=== PATIENT | female | born 1960 | race Caucasian/White ===

== ENCOUNTER 2019-09-22 01:46 | Inpatient (IN) | payer BC, MEDICAID ==
[~2019-09-22] VITALS: Ht 162.6 cm; Wt 91.6 kg
--- NOTE | 2019-09-22 02:00 | NUR ---
PT WITH C/O FLUID IN ABD. STATES SHE HAS BEEN HAVING DIFFICULTY WITH FLUID RETENTION FOR SEVERAL WEEKS. PT HAS A HX OF ALCOHOL USE AND LAST DRINK WAS 09/04/2019. PAIN THROUGHOUT ABD.
[2019-09-22] MEDS ORDERED: ONDANSETRON 2MG/ML, 2ML ONE (02:39)
[2019-09-22] MEDS ORDERED: MORPHINE SULFATE 4 MG/ML, 1ML ONE ×2 (02:40→04:36)
[2019-09-22] MEDS: MORPHINE SULFATE 4 MG/ML, 1ML IVPush PRN ×2 (02:51→04:39)
[2019-09-22] MEDS ORDERED: SODIUM CHLORIDE FLUSH 10ML SYR IVF ONE (03:00)
[2019-09-22] MEDS ORDERED: ONDANSETRON 2MG/ML, 2ML IVPush ONE (03:00)
[2019-09-22] MEDS ORDERED: FAMO-79 PO (03:01)
[2019-09-22] MEDS ORDERED: MAGN400T9 PO (03:01)
[2019-09-22] MEDS ORDERED: NEBI10TA3 PO (03:01)
[2019-09-22] MEDS ORDERED: TRAZ50TA66 PO (03:01)
[2019-09-22] MEDS ORDERED: BACL-19 PO ×2 (03:01→03:10)
[2019-09-22] MEDS ORDERED: SPIRONOLACTONE PO (03:10)
[2019-09-22] MEDS ORDERED: OMEPRAZOLE PO (03:10)
[2019-09-22] MEDS ORDERED: FURO40TA6 PO (03:10)
[2019-09-22] MEDS ORDERED: NICOTINE 14MG/24 HR PATCH.TD24 ONE (04:36)
--- NOTE | 2019-09-22 05:13 | NUR ---
pt placed on hosptial bed.
[2019-09-22] MEDS ORDERED: metoprolol PO (05:29)
--- NOTE | 2019-09-22 05:38 | NUR ---
PT WITH MANY QUESTIONS REGARDING DIAGNOSIS. SHE SAYS NO ONE HAS TAKEN THE TIME TO EXPLAIN IT TO HER. WRITTEN LITERATURE PROVIDED AND SIGNIFICANT AMOUNT OF TIME SPENT ANSWERING QUESTIONS. PT VERBALIZED UNDERSTANDING REGARDING DISEASE PROCESS.
[2019-09-22] MEDS ORDERED: NICOTINE 14MG/24 HR PATCH.TD24 TD ONE (06:00)
--- NOTE | 2019-09-22 06:26 | NUR ---
pt resting on hospital bed with eyes closed. respirations even and unlabored. no acute distress.
--- NOTE | 2019-09-22 06:28 | NUR ---
meal tray ordered.
--- NOTE | 2019-09-22 06:59 | NUR ---
REPORT RECIEVED FROM SHARON MOSS, ASSUEMED CARE OF PT, PT CURRENTLY SLEEPING ON HOSPITAL BED, VISIBLE CHEST RISE AND FALL NOTED.
--- NOTE | 2019-09-22 08:15 | NUR ---
ADMITTING MD IN TO [facility].
[2019-09-22] MEDS ORDERED: ONDANSETRON 2MG/ML, 2ML IVPush PRN (08:30)
[2019-09-22] MEDS: NICOTINE 21 MG/24 HR PATCH.TD24 TD SCH ×2 (08:30→22:57)
[2019-09-22] MEDS ORDERED: CARVEDILOL 6.25 MG TABLET PO SCH (08:30)
[2019-09-22] MEDS ORDERED: HEPARIN 5,000 UNITS/ML, 1ML SQ SCH (08:30)
[2019-09-22] MEDS ORDERED: TRAZODONE 100MG TABLET PO PRN (08:30)
[2019-09-22] MEDS ORDERED: ONDANSETRON ODT 4 MG PO PRN (08:30)
[2019-09-22] MEDS ORDERED: BACLOFEN 10 MG TABLET PO PRN (08:30)
[2019-09-22] MEDS ORDERED: LIDOCAINE 1%, 10ML ONE (08:32)
--- NOTE | 2019-09-22 08:35 | NUR ---
IR RN HERE TO TAKE PT TO HAVE PARACENTESIS PROCEDURE, PT STATES SHE WILL NOT GO WITHOUT ADDITIONAL PAIN MEDICATIONS. SHE STATES "NO ONE IS ON MY SIDE WITH THIS" PT CRYING IN RM. DR CHRISTIANSEN NOTIFIED OF PT REQUEST FOR PAIN MEDS AND REFUSAL TO HAVE PROCEDURE AT THIS TIME, PER ADMITTING MD, PT NOT TO RECIEVE PAIN MEDS. PT REFUSING TO HAVE PROCEDURE AT THIS TIME
[2019-09-22 08:54] LABS: INTERNATIONAL NORMALIZED RATIO 1.15 (0.93-1.1); PROTHROMBIN TIME 12.2 Seconds (9.6-11.5)
[2019-09-22 08:57] LABS: BASOPHILS # (AUTO) 0.06 x10^3/uL (0-0.1); BASOPHILS % (AUTO) 1 % (0-1); EOSINOPHILS # (AUTO) 0.09 x10^3/uL (0-0.4); EOSINOPHILS % (AUTO) 1 % (1-7); LYMPHOCYTES # (AUTO) 2.24 x10^3/uL (1-3.4); LYMPHOCYTES % (AUTO) 28 % (22-44); MD NO; MEAN CORPUSCULAR HEMOGLOBIN 23.8 pg (27.0-34.8); MEAN CORPUSCULAR HGB CONC 31.3 g/dL (32.4-35.8); MEAN CORPUSCULAR VOLUME 76.2 fL (80-100); MEAN PLATELET VOLUME 7.8 fL (7.4-10.4); MONOCYTES # (AUTO) 0.75 x10^3/uL (0.2-0.8); MONOCYTES % (AUTO) 9 % (2-9); NEUTROPHILS # (AUTO) 4.98 x10^3/uL (1.8-6.8); NEUTROPHILS % (AUTO) 61 % (42-75); PLATELET COUNT 313 x10^3/uL (130-400); RED BLOOD COUNT 4.06 x10^6/uL (3.82-5.3); RED CELL DISTRIBUTION WIDTH 21.4 % (9.6-15.2)
[2019-09-22] MEDS: LACTOBACILLUS CHEW TABLET PO SCH ×4 (09:00→21:00)
--- NOTE | 2019-09-22 09:22 | NUR ---
PT HAS BEEN ON PHONE IN RM TALKING/CRYING, ALLOWING PT TIME TO SPEAK WITH FAMILY MEMBER
[2019-09-22 09:24] LABS: ALANINE AMINOTRANSFERASE 14 U/L (12-78); ALBUMIN 2.6 g/dL (3.4-5.0); ANION GAP 5 mmol/L (5-15); CALCIUM 8.5 mg/dL (8.5-10.1); CHLORIDE 102 mmol/L (98-107); CREATININE 0.93 mg/dL (0.55-1.02)
[2019-09-22 09:26] LABS: ALKALINE PHOSPHATASE 77 U/L (45-117); BILIRUBIN,TOTAL 0.7 mg/dL (0.2-1.0); TOTAL PROTEIN 5.9 g/dL (6.4-8.2)
[2019-09-22] MEDS ORDERED: FUROSEMIDE 40 MG TABLET ONE (09:39)
[2019-09-22] MEDS ORDERED: NICOTINE 21 MG/24 HR PATCH.TD24 ONE (09:39)
[2019-09-22] MEDS ORDERED: CARVEDILOL 3.125 MG TABLET ONE (09:39)
--- NOTE | 2019-09-22 09:44 | NUR ---
PT OFFERED MEAL TRAY, PT REFUSED TRAY. VITALS TAKEN
[2019-09-22] MEDS: FUROSEMIDE 40 MG TABLET PO SCH (09:46)
--- NOTE | 2019-09-22 09:53 | NUR ---
PT MEDICATED PER SEP. PT INSTRUCTED THIS RN TO "CLOSE THE DOOR" TO HER RM SO SHE CAN TALK TO SOMEONE. PT EXPRESSED BEING UPSET AT ADMITTING PHYSICIAN, SHE STATES QUOTES HE SAID TO HER, THIS RN ALREADY HEARD DURING HER PHONE CONVERSATION. PT ELABORATES WHEN ASKED A DIRECT QUESTION. PT ASKED BY THIS RN "WHAT CAN I DO FOR YOU AT THIS TIME TO HELP RESOLVE THINGS FOR YOU" PT AGAIN ELABORATES ON TANGENT AND DOES NOT ANSWER THIS RNS QUESTION. THIS RN AGAIN DISCUSSED SITUATION WITH ADMITTING MD, ASKED HIM IF HE COULD GO SEE PT. RESPONSE WAS THIS PT IS MANIPULATIVE AND JUST WANTS PAIN MEDICATION. RN SUP WILL GO IN TO SPEAK WITH PT
--- NOTE | 2019-09-22 11:43 | NUR ---
PT NOW RESTING QUIETLY ON HOSPITAL BED, PT REQUESTING THIS RN ALLOW HER TO SLEEP, WILL CONTINUE TO MONITOR, NO OTHER NEEDS AT THIS TIME
[2019-09-22] MEDS ORDERED: KETOROLAC 30 MG/1 ML ONE (13:47)
--- NOTE | 2019-09-22 14:11 | NUR ---
PT GIVEN LUNCH TRAY PER BREAK RN. PT WAS OFFERED PRN TORADOL FOR PAIN, PT REFUSED. STATES SHE WANTS A NARCOTIC. PER MD PT NOT TO HAVE NARCOTIC MEDICATIONS.
[2019-09-22] MEDS: HEPARIN 5,000 UNITS/ML, 1ML SQ SCH ×2 (15:30→22:46)
[2019-09-22] MEDS ORDERED: BISACODYL 10 MG SUPP PR SCH (17:00)
[2019-09-22] MEDS ORDERED: MORPHINE SULFATE 4 MG/ML, 1ML IVPush PRN (18:00)
[2019-09-22] MEDS: CARVEDILOL 3.125 MG TABLET PO SCH (18:47)
[2019-09-22 19:48] VITALS: BP 110/73
[2019-09-22] MEDS: KETOROLAC 30 MG/1 ML IV PRN (20:18)
[2019-09-23 01:51] VITALS: BP 113/75
[2019-09-23] MEDS: KETOROLAC 30 MG/1 ML IV PRN (04:15)
[2019-09-23 05:13] LABS: ALANINE AMINOTRANSFERASE 13 U/L (12-78); ALBUMIN 2.4 g/dL (3.4-5.0); ANION GAP 5 mmol/L (5-15); CALCIUM 8.3 mg/dL (8.5-10.1); CHLORIDE 101 mmol/L (98-107)
[2019-09-23 05:15] LABS: ALKALINE PHOSPHATASE 74 U/L (45-117); BILIRUBIN,TOTAL 0.6 mg/dL (0.2-1.0); TOTAL PROTEIN 5.6 g/dL (6.4-8.2)
[2019-09-23 05:20] LABS: MEAN CORPUSCULAR HGB CONC 32.4 g/dL (32.4-35.8); MEAN CORPUSCULAR VOLUME 74.1 fL (80-100); MEAN PLATELET VOLUME 7.5 fL (7.4-10.4); PLATELET COUNT 267 x10^3/uL (130-400); RED BLOOD COUNT 3.62 x10^6/uL (3.82-5.3); RED CELL DISTRIBUTION WIDTH 21.2 % (9.6-15.2)
[2019-09-23 05:59] LABS: BASOPHILS # (AUTO) 0.04 x10^3/uL (0-0.1); BASOPHILS % (AUTO) 1 % (0-1); EOSINOPHILS # (AUTO) 0.08 x10^3/uL (0-0.4); EOSINOPHILS % (AUTO) 2 % (1-7); LYMPHOCYTES # (AUTO) 1.73 x10^3/uL (1-3.4); LYMPHOCYTES % (AUTO) 34 % (22-44); MD SCAN; MONOCYTES % (AUTO) 10 % (2-9); NEUTROPHILS # (AUTO) 2.76 x10^3/uL (1.8-6.8); NEUTROPHILS % (AUTO) 54 % (42-75)
[2019-09-23] MEDS: HEPARIN 5,000 UNITS/ML, 1ML SQ SCH ×2 (06:35→12:05)
[2019-09-23] MEDS: CARVEDILOL 3.125 MG TABLET PO SCH (06:35)
[2019-09-23 08:31] VITALS: BP 98/68
[2019-09-23] MEDS: FUROSEMIDE 40 MG TABLET PO SCH (08:40)
[2019-09-23] MEDS: LACTOBACILLUS CHEW TABLET PO SCH (08:40)
[2019-09-23] MEDS ORDERED: BISACODYL 10 MG SUPP PR SCH (09:00)
[2019-09-23] MEDS ORDERED: MORPHINE SULFATE 4 MG/ML, 1ML IVPush PRN (12:00)
[2019-09-23 12:49] VITALS: BP 105/71
[2019-09-23] MEDS ORDERED: LIDOCAINE 1%, 10ML ONE (13:48)
== END 2019-09-23 16:43 | disposition left against medical advice (07) | DRG 433 ==
LOC: ED 03:44 → EDIP 04:18 → 3N 14:58
PROVIDERS: ADMIT Family Medicine; ATTEND Internal Medicine
PROC: 0W9G3ZZ Drainage of Peritoneal Cavity, Percutaneous Approach (ICD-10-PCS; principal; 2019-09-23)
DX: K70.31 Alcoholic cirrhosis of liver with ascites (principal); F10.288 Alcohol dependence with other alcohol-induced disorder; D63.8 Anemia in other chronic diseases classified elsewhere; E66.9 Obesity, unspecified; E78.5 Hyperlipidemia, unspecified; I10 Essential (primary) hypertension; K59.00 Constipation, unspecified; R19.7 Diarrhea, unspecified; F17.210 Nicotine dependence, cigarettes, uncomplicated; Z76.5 Malingerer [conscious simulation]; Z88.2 Allergy status to sulfonamides; Z88.1 Allergy status to other antibiotic agents
CPT/HCPCS: 36415; 96374; 96375; 99285; J3490; 49083; 80053; 80307; 82140; 85025; 85610; G0378; J1885; J2405; J2270

== ENCOUNTER 2019-09-29 11:36 | Outpatient (CLI) | payer BC, MEDICAID ==
[~2019-09-29 11:36] MED LIST: BACL-19 PO; FAMO-79 PO; FURO40TA6 PO; MAGN400T9 PO; NEBI10TA3 PO; OMEPRAZOLE PO; SPIRONOLACTONE PO; TRAZ50TA66 PO; metoprolol PO
[2019-09-29] MEDS ORDERED: LIDOCAINE 1%, 10ML ONE (12:10)
== END 2019-09-29 23:59 | disposition home or self-care (01) ==
LOC: RAD 11:36
PROVIDERS: ATTEND Radiology Diagnostic Radiology
DX: R18.8 Other ascites (principal); F17.210 Nicotine dependence, cigarettes, uncomplicated; Z88.2 Allergy status to sulfonamides; Z88.1 Allergy status to other antibiotic agents; Z88.8 Allergy status to other drugs, medicaments and biological substances; Z88.5 Allergy status to narcotic agent; Z79.899 Other long term (current) drug therapy
CPT/HCPCS: 49083; J3490

== ENCOUNTER → 2020-01-25 | Outpatient (CLI) | payer BC ==
[~2020-01-25] MED LIST changes: +LIDOCAINE 1%, 10ML ONE; +LIDOCAINE-MPF 1%, 5ML ONE
== END | disposition home or self-care (01) ==
LOC: RAD 14:57
PROVIDERS: ATTEND Radiology Diagnostic Radiology
DX: R18.8 Other ascites (principal)
CPT/HCPCS: 49083; J3490

== ENCOUNTER 2020-02-05 08:40 | Outpatient (CLI) | payer BC ==
[~2020-02-05 08:40] MED LIST changes: -LIDOCAINE 1%, 10ML ONE; -LIDOCAINE-MPF 1%, 5ML ONE
[2020-02-05] MEDS ORDERED: LIDOCAINE 1%, 10ML ONE (08:46)
== END 2020-02-05 23:59 | disposition home or self-care (01) ==
LOC: RAD 08:40
PROVIDERS: ATTEND Radiology Diagnostic Radiology
DX: R18.8 Other ascites (principal); R14.0 Abdominal distension (gaseous)
CPT/HCPCS: 49083; J3490

== ENCOUNTER 2020-02-13 11:33 | Outpatient (CLI) | payer BC ==
[2020-02-13] MEDS ORDERED: LIDOCAINE 1%, 10ML ONE (11:50)
== END 2020-02-13 23:59 | disposition home or self-care (01) ==
LOC: RAD 11:33
PROVIDERS: ATTEND Radiology Diagnostic Radiology
DX: R18.8 Other ascites (principal); F17.210 Nicotine dependence, cigarettes, uncomplicated; Z88.1 Allergy status to other antibiotic agents; Z88.2 Allergy status to sulfonamides; Z88.8 Allergy status to other drugs, medicaments and biological substances; Z79.899 Other long term (current) drug therapy; Z72.89 Other problems related to lifestyle
CPT/HCPCS: 49083; J3490

== ENCOUNTER 2020-02-16 14:34 | Outpatient (CLI) | payer BC ==
[2020-02-16] MEDS ORDERED: LIDOCAINE 1%, 10ML ONE (14:53)
== END 2020-02-16 23:59 | disposition home or self-care (01) ==
LOC: RAD 14:34
PROVIDERS: ATTEND Radiology Diagnostic Radiology
DX: R18.8 Other ascites (principal); F17.210 Nicotine dependence, cigarettes, uncomplicated; Z72.89 Other problems related to lifestyle; Z88.1 Allergy status to other antibiotic agents; Z88.2 Allergy status to sulfonamides; Z88.8 Allergy status to other drugs, medicaments and biological substances; Z79.899 Other long term (current) drug therapy
CPT/HCPCS: 49083; J3490

== ENCOUNTER 2020-02-26 15:16 | Outpatient (CLI) | payer BC ==
[2020-02-26] MEDS ORDERED: LIDOCAINE 1%, 10ML ONE (15:24)
== END 2020-02-26 23:59 | disposition home or self-care (01) ==
LOC: RAD 15:16
PROVIDERS: ATTEND Radiology Diagnostic Radiology
DX: R18.8 Other ascites (principal)
CPT/HCPCS: 49083; J3490

== ENCOUNTER 2020-03-06 13:05 | Outpatient (CLI) | payer BC ==
[2020-03-06] MEDS ORDERED: LIDOCAINE 1%, 10ML ONE (13:09)
[2020-03-06] MEDS ORDERED: OMNIPAQUE 350 MG/ML, 100ML BOTTLE ONE (15:22)
== END 2020-03-06 23:59 | disposition home or self-care (01) ==
LOC: RAD 13:05
PROVIDERS: ATTEND Radiology Diagnostic Radiology
DX: K70.31 Alcoholic cirrhosis of liver with ascites (principal); F32.9 Major depressive disorder, single episode, unspecified; F17.210 Nicotine dependence, cigarettes, uncomplicated; Z88.1 Allergy status to other antibiotic agents; Z88.8 Allergy status to other drugs, medicaments and biological substances; Z88.2 Allergy status to sulfonamides; Z79.2 Long term (current) use of antibiotics; Z79.899 Other long term (current) drug therapy; Z98.890 Other specified postprocedural states; Z90.49 Acquired absence of other specified parts of digestive tract
CPT/HCPCS: 49083; 74170; J3490; Q9967

== ENCOUNTER 2020-03-06 15:28 | Outpatient (CLI) | payer SELFPAY ==
[2020-03-06 15:53] LABS: MICROSCOPIC NOT IND
== END 2020-03-06 23:59 | disposition home or self-care (01) ==
LOC: LAB 15:28
PROVIDERS: ATTEND Internal Medicine Gastroenterology
DX: K70.31 Alcoholic cirrhosis of liver with ascites (principal)
CPT/HCPCS: 81003; 84300

== ENCOUNTER → 2020-03-11 | Outpatient (CLI) | payer BC ==
[~2020-03-11] MED LIST changes: +ALBUMIN HUMAN 25%, 25GM/100ML ONE; +LIDOCAINE 1%, 10ML ONE
== END | disposition home or self-care (01) ==
LOC: RAD 11:46
PROVIDERS: ATTEND Radiology Diagnostic Radiology
DX: K70.31 Alcoholic cirrhosis of liver with ascites (principal)
CPT/HCPCS: 49083; J3490; P9047

== ENCOUNTER → 2020-03-15 | Outpatient (CLI) | payer BC ==
[~2020-03-15] MED LIST changes: -ALBUMIN HUMAN 25%, 25GM/100ML ONE
== END | disposition home or self-care (01) ==
LOC: RAD 09:17
PROVIDERS: ATTEND Radiology Diagnostic Radiology
DX: R18.8 Other ascites (principal)
CPT/HCPCS: 49083; J3490

== ENCOUNTER 2020-03-22 09:07 | Outpatient (CLI) | payer BC ==
[~2020-03-22 09:07] MED LIST changes: -LIDOCAINE 1%, 10ML ONE
[2020-03-22] MEDS ORDERED: LIDOCAINE 1%, 10ML ONE (09:12)
[2020-03-22] MEDS ORDERED: ALBUMIN HUMAN 25%, 25GM/100ML ONE (10:06)
== END 2020-03-22 23:59 | disposition home or self-care (01) ==
LOC: RAD 09:07
PROVIDERS: ATTEND Radiology Diagnostic Radiology
DX: K70.31 Alcoholic cirrhosis of liver with ascites (principal); F32.9 Major depressive disorder, single episode, unspecified; F17.210 Nicotine dependence, cigarettes, uncomplicated; Z88.1 Allergy status to other antibiotic agents; Z88.2 Allergy status to sulfonamides; Z88.8 Allergy status to other drugs, medicaments and biological substances; Z90.49 Acquired absence of other specified parts of digestive tract; Z79.82 Long term (current) use of aspirin; Z72.89 Other problems related to lifestyle; Z79.899 Other long term (current) drug therapy; Z98.890 Other specified postprocedural states
CPT/HCPCS: 49083; J3490; P9047

== ENCOUNTER → 2020-03-26 | Outpatient (CLI) | payer BC ==
[~2020-03-26] MED LIST changes: +ALBUMIN HUMAN 25%, 25GM/100ML ONE
== END | disposition home or self-care (01) ==
LOC: RAD 10:39
PROVIDERS: ATTEND Radiology Diagnostic Radiology
DX: K70.31 Alcoholic cirrhosis of liver with ascites (principal); F32.9 Major depressive disorder, single episode, unspecified; E55.9 Vitamin D deficiency, unspecified; F17.210 Nicotine dependence, cigarettes, uncomplicated; Z79.891 Long term (current) use of opiate analgesic; Z79.82 Long term (current) use of aspirin; Z79.899 Other long term (current) drug therapy; Z90.49 Acquired absence of other specified parts of digestive tract; Z98.84 Bariatric surgery status; Z98.890 Other specified postprocedural states
CPT/HCPCS: 49083; P9047

== ENCOUNTER 2020-03-29 15:06 | Inpatient (IN) | payer BC ==
[~2020-03-29] VITALS: Ht 162.6 cm; Wt 74.3 kg
[~2020-03-29 15:06] MED LIST changes: -LACT20SO13 PO; -LIDOCAINE 1%, 10ML ONE
--- NOTE | 2020-03-29 15:31 | NUR ---
ASSUMED CARE OF PATIENT. PT C/O RUQ "SORENESS." PT HAS A HISTORY OF LIVER DISEASE. PT ALSO REPORTS SHE HAS NOT HAD A LOT OF ENERGY. VS STABLE. PT REFUSED TO PUT ON GOWN. CALL LIGHT IN PLACE. WILL CONTINUE TO MONITOR.
--- NOTE | 2020-03-29 16:15 | NUR ---
GABRIELA STOCK IN ROOM TALKING WITH PATIENT.
--- NOTE | 2020-03-29 16:25 | NUR ---
PT GIVEN PO FLUIDS PER GABRIELA STOCK
--- NOTE | 2020-03-29 16:29 | NUR ---
PT REFUSED CATHETER. GABRIELA STOCK AWARE.
[2020-03-29] MEDS ORDERED: SODIUM CHLORIDE FLUSH 10ML SYR IVF ONE (16:30)
[2020-03-29 17:05] LABS: BASOPHILS # (AUTO) 0.06 x10^3/uL (0-0.1); BASOPHILS % (AUTO) 1 % (0-1); EOSINOPHILS # (AUTO) 0.16 x10^3/uL (0-0.4); EOSINOPHILS % (AUTO) 1 % (1-7); LYMPHOCYTES # (AUTO) 1.72 x10^3/uL (1-3.4); LYMPHOCYTES % (AUTO) 14 % (22-44); MD NO; MEAN CORPUSCULAR HEMOGLOBIN 27.4 pg (27.0-34.8); MEAN CORPUSCULAR HGB CONC 33.1 g/dL (32.4-35.8); MEAN CORPUSCULAR VOLUME 82.9 fL (80-100); MEAN PLATELET VOLUME 6.9 fL (7.4-10.4); MONOCYTES # (AUTO) 1.16 x10^3/uL (0.2-0.8); MONOCYTES % (AUTO) 9 % (2-9); NEUTROPHILS # (AUTO) 9.51 x10^3/uL (1.8-6.8); NEUTROPHILS % (AUTO) 75 % (42-75); PLATELET COUNT 350 x10^3/uL (130-400); RED BLOOD COUNT 5.61 x10^6/uL (3.82-5.3); RED CELL DISTRIBUTION WIDTH 16.3 % (9.6-15.2)
--- NOTE | 2020-03-29 17:08 | NUR ---
PT RESTING IN ROOM. VS STABLE. NO ACUTE DISTRESS NOTED. CALL LIGHT IN PLACE. WILL CONTINUE TO MONITOR.
[2020-03-29 17:14] LABS: ALANINE AMINOTRANSFERASE 19 U/L (12-78); ALBUMIN 2.8 g/dL (3.4-5.0); ANION GAP 5 mmol/L (5-15); CALCIUM 8.5 mg/dL (8.5-10.1); CHLORIDE 102 mmol/L (98-107); CREATININE 2.38 mg/dL (0.55-1.02)
[2020-03-29 17:16] LABS: ALKALINE PHOSPHATASE 108 U/L (45-117); BILIRUBIN,TOTAL 0.5 mg/dL (0.2-1.0); TOTAL PROTEIN 5.7 g/dL (6.4-8.2)
--- NOTE | 2020-03-29 17:18 | NUR ---
PT REPORTS SHE DOES NOT WANT A CATHETER SHE WANTS TO URINATE IN A CUP. GABRIELA STOCK AWARE. PT GIVEN A CUP. PT GIVEN WATER PER PROVIDER. PT IS NOT ABLE TO URINATE YET. PT IS RESTING IN ROOM. VS STABLE. NO ACUTE DISTRESS NOTED. WILL CONTINUE TO MONITOR.
[2020-03-29] MEDS ORDERED: DEXTROSE 50%, 50ML SYRINGE IVPush ONE (17:30)
[2020-03-29] MEDS ORDERED: INSULIN REGULAR 100 UNITS/ML, 3ML VIAL IVPush ONE (17:30)
[2020-03-29] MEDS ORDERED: ALBUTEROL 0.5%, 20ML NPPB ONE (17:30)
--- NOTE | 2020-03-29 17:33 | NUR ---
DR BOONE HAS UPDATED PATIENT. PATIENT REFUSES EKG UNTIL SHE CAN GO THE BATHROOM. PT IN BATHROOM AT THIS TIME.
[2020-03-29] MEDS ORDERED: ALBUTEROL 0.5%, 20ML ONE (17:51)
[2020-03-29] MEDS ORDERED: ALBUTEROL SULFATE 2.5 MG/3 ML ONE (17:55)
[2020-03-29] MEDS ORDERED: CALCIUM GLUCONATE 4.6 MEQ/10 ML IVPush ONE (18:00)
[2020-03-29] MEDS ORDERED: DEXTROSE 50%, 50ML SYRINGE ONE (18:03)
[2020-03-29] MEDS ORDERED: CALCIUM GLUCONATE 4.6 MEQ/10 ML ONE (18:03)
[2020-03-29] MEDS ORDERED: INSULIN SINGLE DOSE, ER ONE (18:05)
--- NOTE | 2020-03-29 18:23 | NUR ---
TALKED WITH PHARMACY. PHARMACY TO SEND A BAG OF CALCIUM GLUCONATE
[2020-03-29] MEDS ORDERED: CALCIUM GLUCONATE 4.6 MEQ in SODIUM CHLORIDE 0.9% 100 ML IV ONE (18:30)
[2020-03-29] MEDS ORDERED: ONDANSETRON ODT 4 MG PO PRN (18:30)
--- NOTE | 2020-03-29 18:31 | NUR ---
COMPARISON SHOPPER ON. NSR NOTED. CALL LIGHT IN PLACE. WILL CONTINUE TO MONITOR.
[2020-03-29 18:36] LABS: INTERNATIONAL NORMALIZED RATIO 1.09 (0.93-1.1); PROTHROMBIN TIME 11.2 Seconds (9.6-11.5)
--- NOTE | 2020-03-29 18:41 | NUR ---
BOTH BLOOD CULTURES DRAWN
--- NOTE | 2020-03-29 18:49 | NUR ---
PT REPORTS SHE NO LONGER TAKES BACLOFIN OR LASIX. PROVIDER BRANCH. VALENTINE LAKE NP (PT'S PROVIDER) WANTS BACLOFIN AND LASIX STOPPED. READ BACK AND VERIFED WITH PROVIDER.
[2020-03-29] MEDS ORDERED: SODIUM BICARB 8.4%,50ML SYR. 75 MEQ in SODIUM CHLORIDE 0.45% 1,000 ML IV SCH (19:00)
--- NOTE | 2020-03-29 20:03 | NUR ---
PT REFUSES TO PUT ON GOWN. PT CALLING SON TO LET HIM KNOW SHE WILL BE AN ADMIT.
--- NOTE | 2020-03-29 20:16 | NUR ---
PT GIVEN DINNER. VS STABLE. NO ACUTE DISTRESS NOTED. WILL CONTINUE TO MONITOR.
[2020-03-29] MEDS: ALBUMIN HUMAN 25% 100 ML IV SCH (20:29)
[2020-03-29 20:40] LABS: C-REACTIVE PROTEIN, QUANT 0.48 mg/dL (0.02-0.49)
[2020-03-29] MEDS ORDERED: BACLOFEN 10 MG TABLET PO SCH (21:00)
[2020-03-29 21:31] LABS: MICROSCOPIC INDICATED
[2020-03-29] MEDS: SODIUM CHLORIDE FLUSH 10ML SYR IVF SCH (21:41)
[2020-03-29] MEDS: TRAZODONE 50MG TABLET PO SCH (21:42)
[2020-03-29] MEDS: LACTULOSE 20 GM/30 ML UDC PO SCH (21:42)
[2020-03-29] MEDS: hydrOXyzine 10 MG/5 ML ORAL SOL PO PRN (21:42)
[2020-03-29 21:50] VITALS: BP 110/75
[2020-03-29 21:52] LABS: CHLORIDE,URINE RANDOM < 10 mmol/L; POTASSIUM,URINE RANDOM 23 mmol/L; SODIUM,URINE RANDOM 9 mmol/L
[2020-03-29] MEDS: OXYcodone IR 5MG TABLET PO PRN (22:49)
[2020-03-30 00:26] VITALS: BP 107/70
[2020-03-30] MEDS: ALBUMIN HUMAN 25% 100 ML IV SCH ×3 (04:49→21:13)
[2020-03-30] MEDS: hydrOXyzine 10 MG/5 ML ORAL SOL PO PRN (04:56)
[2020-03-30] MEDS: OXYcodone IR 5MG TABLET PO PRN ×4 (04:57→21:14)
[2020-03-30 06:08] LABS: BASOPHILS # (AUTO) 0.06 x10^3/uL (0-0.1); BASOPHILS % (AUTO) 1 % (0-1); EOSINOPHILS # (AUTO) 0.24 x10^3/uL (0-0.4); EOSINOPHILS % (AUTO) 4 % (1-7); LYMPHOCYTES # (AUTO) 1.26 x10^3/uL (1-3.4); LYMPHOCYTES % (AUTO) 19 % (22-44); MD NO; MEAN CORPUSCULAR HEMOGLOBIN 27.6 pg (27.0-34.8); MEAN CORPUSCULAR HGB CONC 33.1 g/dL (32.4-35.8); MEAN CORPUSCULAR VOLUME 83.3 fL (80-100); MEAN PLATELET VOLUME 6.7 fL (7.4-10.4); MONOCYTES % (AUTO) 8 % (2-9); NEUTROPHILS # (AUTO) 4.59 x10^3/uL (1.8-6.8); NEUTROPHILS % (AUTO) 69 % (42-75); PLATELET COUNT 252 x10^3/uL (130-400); RED BLOOD COUNT 4.57 x10^6/uL (3.82-5.3); RED CELL DISTRIBUTION WIDTH 15.8 % (9.6-15.2)
[2020-03-30 06:13] LABS: ALBUMIN 3.5 g/dL (3.4-5.0); ANION GAP 6 mmol/L (5-15); CALCIUM 8.5 mg/dL (8.5-10.1); CHLORIDE 100 mmol/L (98-107)
[2020-03-30 06:20] LABS: ALANINE AMINOTRANSFERASE 18 U/L (12-78); ALKALINE PHOSPHATASE 82 U/L (45-117); BILIRUBIN,TOTAL 0.8 mg/dL (0.2-1.0); CREATININE 2.25 mg/dL (0.55-1.02); TOTAL PROTEIN 5.8 g/dL (6.4-8.2)
[2020-03-30 07:09] VITALS: BP 114/74
[2020-03-30] MEDS: SODIUM CHLORIDE FLUSH 10ML SYR IVF SCH ×2 (09:00→21:14)
[2020-03-30] MEDS ORDERED: FUROSEMIDE 40 MG TABLET PO SCH (09:00)
[2020-03-30] MEDS: MAGNESIUM OXIDE 400 MG TABLET PO SCH (09:07)
[2020-03-30] MEDS: LACTULOSE 20 GM/30 ML UDC PO SCH ×3 (09:07→21:13)
[2020-03-30] MEDS ORDERED: PHARMACY MAY ADJ FOR RENAL FX MC PRN (11:00)
[2020-03-30] MEDS ORDERED: DIPHENHYDRAMINE 12.5MG/5ML, 10ML UDC PO PRN (11:00)
[2020-03-30] MEDS ORDERED: SODIUM BICARB 8.4%,50ML SYR. 75 MEQ in SODIUM CHLORIDE 0.45% 1,000 ML IV ONE (11:15)
[2020-03-30 13:07] VITALS: BP 108/71
[2020-03-30 15:29] LABS: MICROSCOPIC NOT IND
[2020-03-30] MEDS ORDERED: NICOTINE 21 MG/24 HR PATCH.TD24 TD ONE (20:30)
[2020-03-30] MEDS: TRAZODONE 50MG TABLET PO SCH (21:14)
[2020-03-30 21:15] VITALS: BP 105/69
[2020-03-31] MEDS: OXYcodone IR 5MG TABLET PO PRN ×2 (01:22→05:29)
[2020-03-31 01:51] VITALS: BP 117/70
[2020-03-31] MEDS: ALBUMIN HUMAN 25% 100 ML IV SCH ×2 (04:54→12:30)
[2020-03-31 06:07] LABS: BASOPHILS # (AUTO) 0.04 x10^3/uL (0-0.1); BASOPHILS % (AUTO) 1 % (0-1); EOSINOPHILS # (AUTO) 0.21 x10^3/uL (0-0.4); EOSINOPHILS % (AUTO) 5 % (1-7); LYMPHOCYTES # (AUTO) 0.79 x10^3/uL (1-3.4); LYMPHOCYTES % (AUTO) 19 % (22-44); MD NO; MEAN CORPUSCULAR HEMOGLOBIN 27.8 pg (27.0-34.8); MEAN CORPUSCULAR HGB CONC 33.1 g/dL (32.4-35.8); MEAN CORPUSCULAR VOLUME 83.8 fL (80-100); MEAN PLATELET VOLUME 6.3 fL (7.4-10.4); MONOCYTES # (AUTO) 0.33 x10^3/uL (0.2-0.8); MONOCYTES % (AUTO) 8 % (2-9); NEUTROPHILS # (AUTO) 2.82 x10^3/uL (1.8-6.8); NEUTROPHILS % (AUTO) 67 % (42-75); PLATELET COUNT 198 x10^3/uL (130-400); RED BLOOD COUNT 4.23 x10^6/uL (3.82-5.3); RED CELL DISTRIBUTION WIDTH 15.8 % (9.6-15.2)
[2020-03-31 06:09] LABS: ALANINE AMINOTRANSFERASE 18 U/L (12-78); ALBUMIN 3.7 g/dL (3.4-5.0); ANION GAP 8 mmol/L (5-15); CALCIUM 8.4 mg/dL (8.5-10.1); CHLORIDE 98 mmol/L (98-107); CREATININE 1.49 mg/dL (0.55-1.02)
[2020-03-31 06:11] LABS: ALKALINE PHOSPHATASE 77 U/L (45-117); BILIRUBIN,TOTAL 0.9 mg/dL (0.2-1.0)
[2020-03-31 07:16] VITALS: BP 96/60
[2020-03-31] MEDS: MAGNESIUM OXIDE 400 MG TABLET PO SCH (08:23)
[2020-03-31] MEDS: LACTULOSE 20 GM/30 ML UDC PO SCH (08:24)
[2020-03-31] MEDS: SODIUM CHLORIDE FLUSH 10ML SYR IVF SCH (08:24)
[2020-03-31] MEDS ORDERED: LACT20SO13 PO (12:28)
[2020-03-31 12:38] VITALS: BP 110/74
== END 2020-03-31 17:00 | disposition home or self-care (01) | DRG 682 ==
LOC: ED 18:09 → EDIP 18:37 → 4WST 21:06
PROVIDERS: ADMIT Family Medicine; ATTEND Family Medicine
DX: N17.0 Acute kidney failure with tubular necrosis (principal); K76.7 Hepatorenal syndrome; E87.1 Hypo-osmolality and hyponatremia; R65.10 Systemic inflammatory response syndrome (SIRS) of non-infectious origin without acute organ dysfunction; K70.31 Alcoholic cirrhosis of liver with ascites; D72.829 Elevated white blood cell count, unspecified; E78.5 Hyperlipidemia, unspecified; E87.5 Hyperkalemia; F10.20 Alcohol dependence, uncomplicated; F17.210 Nicotine dependence, cigarettes, uncomplicated; I10 Essential (primary) hypertension; L29.9 Pruritus, unspecified; E66.9 Obesity, unspecified; I95.9 Hypotension, unspecified; Z91.19 Patient's noncompliance with other medical treatment and regimen; Z90.49 Acquired absence of other specified parts of digestive tract; Z79.899 Other long term (current) drug therapy; Z88.2 Allergy status to sulfonamides; Z88.1 Allergy status to other antibiotic agents; Z88.8 Allergy status to other drugs, medicaments and biological substances; Z68.28 Body mass index [BMI] 28.0-28.9, adult; Z88.5 Allergy status to narcotic agent
CPT/HCPCS: 36415; 76770; 80053; 80307; 81001; 81003; 82140; 82436; 82570; 82962; 83605; 83690; 83930; 83935; 84132; 84133; 84300; 85025; 85610; 85730; 86140; 87040; 87086; 93005; 96374; 96375; G0378; J0610; J1815; P9047; Q0177

== ENCOUNTER → 2020-03-29 | Outpatient (CLI) | payer BC ==
[~2020-03-29] MED LIST changes: -ALBUMIN HUMAN 25%, 25GM/100ML ONE; +LACT20SO13 PO; +LIDOCAINE 1%, 10ML ONE
== END | disposition home or self-care (01) ==
LOC: RAD 14:42
PROVIDERS: ATTEND Radiology Diagnostic Radiology
DX: K70.31 Alcoholic cirrhosis of liver with ascites (principal); R41.82 Altered mental status, unspecified
CPT/HCPCS: 49083; J3490

== ENCOUNTER → 2020-04-04 | Outpatient (CLI) | payer BC ==
[~2020-04-04] MED LIST changes: +LACT20SO13 PO; +LIDOCAINE 1%, 10ML ONE; +MIDO5TAB9 PO; +OXYC5TAB3 PO; +RIFA550T4 PO
== END | disposition home or self-care (01) ==
LOC: RAD 12:38
PROVIDERS: ATTEND Radiology Diagnostic Radiology
DX: K70.31 Alcoholic cirrhosis of liver with ascites (principal)
CPT/HCPCS: 49083; J3490

== ENCOUNTER 2020-04-05 12:56 | Inpatient (IN) | payer BC ==
[~2020-04-05] VITALS: Ht 162.6 cm; Wt 72.2 kg
[~2020-04-05 12:56] MED LIST changes: -LIDOCAINE 1%, 10ML ONE; -MIDO5TAB9 PO; -OXYC5TAB3 PO; -RIFA550T4 PO
[2020-04-05 13:46] LABS: ALANINE AMINOTRANSFERASE 18 U/L (12-78); ALBUMIN 3.1 g/dL (3.4-5.0); ANION GAP 7 mmol/L (5-15); CHLORIDE 104 mmol/L (98-107); CREATININE 1.98 mg/dL (0.55-1.02)
[2020-04-05 13:48] LABS: ALKALINE PHOSPHATASE 126 U/L (45-117); BILIRUBIN,TOTAL 0.7 mg/dL (0.2-1.0); TOTAL PROTEIN 6.2 g/dL (6.4-8.2)
[2020-04-05 13:50] LABS: BASOPHILS # (AUTO) 0.01 x10^3/uL (0-0.1); BASOPHILS % (AUTO) 0 % (0-1); EOSINOPHILS % (AUTO) 2 % (1-7); LYMPHOCYTES # (AUTO) 1.26 x10^3/uL (1-3.4); LYMPHOCYTES % (AUTO) 12 % (22-44); MD NO; MEAN CORPUSCULAR HEMOGLOBIN 27.6 pg (27.0-34.8); MEAN CORPUSCULAR HGB CONC 33.7 g/dL (32.4-35.8); MEAN CORPUSCULAR VOLUME 81.9 fL (80-100); MEAN PLATELET VOLUME 7.1 fL (7.4-10.4); MONOCYTES # (AUTO) 0.78 x10^3/uL (0.2-0.8); MONOCYTES % (AUTO) 8 % (2-9); NEUTROPHILS # (AUTO) 8.01 x10^3/uL (1.8-6.8); NEUTROPHILS % (AUTO) 78 % (42-75); PLATELET COUNT 341 x10^3/uL (130-400); RED BLOOD COUNT 5.34 x10^6/uL (3.82-5.3); RED CELL DISTRIBUTION WIDTH 15.7 % (9.6-15.2)
--- NOTE | 2020-04-05 15:20 | NUR ---
PORTABLE MACHINE SANDER: PT TO ROOM FROM LOBBY
--- NOTE | 2020-04-05 15:28 | NUR ---
PT HAS CIRRHOSIS, 2L PARACENTESIS YESTERDAY BUT MD WAS WORRIED TO REMOVE MORE BECAUSE HE DIDNT WANT TO HURT KIDNEYS. PT IS UNCOMFORTABLE, STATES SHE IS UNABLE TO PROVIDE URINE SAMPLE AT THIS TIME. PT DENIES CP, SOB. JUST OVERALL PAIN FROM PRESSURE IN ABDOMEN.
[2020-04-05] MEDS ORDERED: ONDANSETRON 2MG/ML, 2ML IVPush ONE (16:00)
[2020-04-05] MEDS ORDERED: HYDROmorphone 2 MG/ML, 1ML IVPush ONE (16:00)
[2020-04-05] MEDS ORDERED: HYDROmorphone 1 MG/ML, 1ML INJ ONE (16:12)
[2020-04-05] MEDS ORDERED: ONDANSETRON 2MG/ML, 2ML ONE (16:13)
--- NOTE | 2020-04-05 16:39 | NUR ---
MEDICATED FOR PAIN, POC FOR IR
[2020-04-05] MEDS ORDERED: ALBUMIN HUMAN 25% 100 ML IV ONE ×2 (17:30)
[2020-04-05] MEDS: CEFTRIAXONE PMX 1GM/50ML 50 ML IV SCH ×2 (17:30→17:43)
[2020-04-05] MEDS ORDERED: MELATONIN 5 MG TABLET PO PRN (17:30)
[2020-04-05] MEDS ORDERED: ONDANSETRON 2MG/ML, 2ML IVPush PRN (17:30)
[2020-04-05] MEDS ORDERED: CEFTRIAXONE PMX 1GM/50ML 50 ML ONE (17:38)
--- NOTE | 2020-04-05 17:45 | NUR ---
PT BACK FROM IR, [facility] AT BEDSIDE.
[2020-04-05] MEDS ORDERED: DIPHENHYDRAMINE 25 MG CAPSULE PO PRN (18:00)
[2020-04-05] MEDS ORDERED: SODIUM ZIRCONIUM CYCLOSILICATE 10 GM PO ONE (18:30)
[2020-04-05] MEDS ORDERED: LEVOFLOXACIN/PMX 250MG/50ML 50 ML IV SCH (18:30)
[2020-04-05 18:34] LABS: INTERNATIONAL NORMALIZED RATIO 1.06 (0.93-1.1); PROTHROMBIN TIME 10.9 Seconds (9.6-11.5)
--- NOTE | 2020-04-05 18:34 | NUR ---
WAITING FOR MEDICATIONS FROM PHARMACY
[2020-04-05] MEDS ORDERED: NICOTINE 21 MG/24 HR PATCH.TD24 ONE (19:56)
[2020-04-05] MEDS ORDERED: DIPHENHYDRAMINE 25 MG CAPSULE ONE (19:56)
[2020-04-05] MEDS: NICOTINE 21 MG/24 HR PATCH.TD24 TD SCH (19:59)
[2020-04-05 20:42] VITALS: BP 134/77
[2020-04-05] MEDS: MIDODRINE 5 MG TABLET PO SCH (21:04)
[2020-04-05] MEDS: LACTULOSE 20 GM/30 ML UDC PO SCH (21:04)
[2020-04-05] MEDS: SODIUM BICARBONATE 650 MG TABLET PO SCH (21:05)
[2020-04-05] MEDS: SODIUM CHLORIDE FLUSH 10ML SYR IVF SCH (21:05)
[2020-04-05] MEDS: OXYcodone IR 5MG TABLET PO PRN (21:05)
[2020-04-06 01:45] VITALS: BP 117/78
[2020-04-06] MEDS: OXYcodone IR 5MG TABLET PO PRN ×4 (03:08→22:43)
[2020-04-06 05:23] LABS: ANION GAP 7 mmol/L (5-15); CALCIUM 8.5 mg/dL (8.5-10.1); CHLORIDE 100 mmol/L (98-107); CREATININE 1.65 mg/dL (0.55-1.02)
[2020-04-06 05:50] LABS: BASOPHILS # (AUTO) 0.04 x10^3/uL (0-0.1); BASOPHILS % (AUTO) 1 % (0-1); EOSINOPHILS # (AUTO) 0.23 x10^3/uL (0-0.4); EOSINOPHILS % (AUTO) 3 % (1-7); LYMPHOCYTES % (AUTO) 15 % (22-44); MD NO; MEAN CORPUSCULAR HEMOGLOBIN 26.7 pg (27.0-34.8); MEAN CORPUSCULAR HGB CONC 31.4 g/dL (32.4-35.8); MEAN CORPUSCULAR VOLUME 84.9 fL (80-100); MEAN PLATELET VOLUME 6.7 fL (7.4-10.4); MONOCYTES % (AUTO) 7 % (2-9); NEUTROPHILS # (AUTO) 5.38 x10^3/uL (1.8-6.8); NEUTROPHILS % (AUTO) 74 % (42-75); PLATELET COUNT 230 x10^3/uL (130-400); RED BLOOD COUNT 4.61 x10^6/uL (3.82-5.3); RED CELL DISTRIBUTION WIDTH 16.2 % (9.6-15.2)
[2020-04-06 07:12] VITALS: BP 98/61
[2020-04-06] MEDS ORDERED: PANTOPRAZOLE 40 MG IV IVPush SCH (07:30)
[2020-04-06] MEDS: SODIUM BICARBONATE 650 MG TABLET PO SCH (09:29)
[2020-04-06] MEDS: LACTULOSE 20 GM/30 ML UDC PO SCH ×3 (09:30→21:25)
[2020-04-06] MEDS: SODIUM CHLORIDE FLUSH 10ML SYR IVF SCH ×2 (09:30→21:25)
[2020-04-06] MEDS: MIDODRINE 5 MG TABLET PO SCH ×3 (09:30→21:25)
[2020-04-06] MEDS: RIFAXIMIN 550 MG TABLET PO SCH (13:32)
[2020-04-06] MEDS: DIPHENHYDRAMINE 25 MG CAPSULE PO PRN ×2 (13:32→21:36)
[2020-04-06 13:34] VITALS: BP 113/76
[2020-04-06 19:35] VITALS: BP 113/77
[2020-04-06] MEDS ORDERED: TRAZODONE 100MG TABLET PO SCH (21:00)
[2020-04-06] MEDS: NICOTINE 21 MG/24 HR PATCH.TD24 TD SCH (22:43)
[2020-04-06 23:12] LABS: POTASSIUM,URINE RANDOM 37 mmol/L; SODIUM,URINE RANDOM 12 mmol/L
[2020-04-06 23:16] LABS: CHLORIDE,URINE RANDOM < 10 mmol/L
[2020-04-06 23:27] LABS: MICROSCOPIC INDICATED
[2020-04-07 00:38] VITALS: BP 105/65
[2020-04-07 04:12] LABS: ANION GAP 5 mmol/L (5-15); CALCIUM 8.3 mg/dL (8.5-10.1); CHLORIDE 102 mmol/L (98-107)
[2020-04-07 07:03] VITALS: BP 95/61
[2020-04-07] MEDS ORDERED: SODIUM ZIRCONIUM CYCLOSILICATE 5 GM PO ONE (07:30)
[2020-04-07] MEDS: RIFAXIMIN 550 MG TABLET PO SCH (08:29)
[2020-04-07] MEDS: LACTULOSE 20 GM/30 ML UDC PO SCH (08:29)
[2020-04-07] MEDS: MIDODRINE 5 MG TABLET PO SCH (08:29)
[2020-04-07] MEDS: OXYcodone IR 5MG TABLET PO PRN (08:30)
[2020-04-07] MEDS: SODIUM CHLORIDE FLUSH 10ML SYR IVF SCH (09:28)
[2020-04-07] MEDS ORDERED: OXYC5TAB3 PO (11:17)
[2020-04-07] MEDS ORDERED: RIFA550T4 PO (11:17)
[2020-04-07] MEDS ORDERED: MIDO5TAB9 PO (11:17)
[2020-04-07 13:06] VITALS: BP 118/61
== END 2020-04-07 15:15 | disposition home or self-care (01) | DRG 432 ==
LOC: ED 16:06 → EDIP 17:10 → 3N 20:32 → DCLOUNGE 04-07 15:00
PROVIDERS: ADMIT Hospitalist; ATTEND Hospitalist
PROC: 0W9G3ZX Drainage of Peritoneal Cavity, Percutaneous Approach, Diagnostic (ICD-10-PCS; principal; 2020-04-05)
DX: K70.31 Alcoholic cirrhosis of liver with ascites (principal); K76.7 Hepatorenal syndrome; E87.1 Hypo-osmolality and hyponatremia; E87.2 Acidosis; L03.311 Cellulitis of abdominal wall; N17.9 Acute kidney failure, unspecified; E78.5 Hyperlipidemia, unspecified; E87.5 Hyperkalemia; F17.210 Nicotine dependence, cigarettes, uncomplicated; G89.29 Other chronic pain; I12.9 Hypertensive chronic kidney disease with stage 1 through stage 4 chronic kidney disease, or unspecified chronic kidney disease; I86.8 Varicose veins of other specified sites; K72.90 Hepatic failure, unspecified without coma; K76.0 Fatty (change of) liver, not elsewhere classified; N18.3 Chronic kidney disease, stage 3 (moderate); Z98.84 Bariatric surgery status; M19.90 Unspecified osteoarthritis, unspecified site; Z88.6 Allergy status to analgesic agent; Z88.1 Allergy status to other antibiotic agents; Z88.2 Allergy status to sulfonamides; Z88.8 Allergy status to other drugs, medicaments and biological substances; M25.559 Pain in unspecified hip
CPT/HCPCS: 36415; 82042; 89051; J3490; 49083; 80048; 80053; 80074; 81001; 82105; 82140; 82436; 82533; 82570; 83690; 83735; 84100; 84133; 84300; 85025; 85610; 87070; 87086; 87205; 88112; 88305; 93005; 96374; 96375; G0378; J1170; J2405; P9047; J1956; Q0163

== ENCOUNTER 2020-04-08 12:07 | Emergency (ER) | payer BC ==
[~2020-04-08] VITALS: Ht 162.6 cm; Wt 70.7 kg
[~2020-04-08 12:07] MED LIST changes: +MIDO5TAB9 PO; +OXYC5TAB3 PO; +RIFA550T4 PO
[2020-04-08 12:33] VITALS: BP 136/81
[2020-04-08] MEDS ORDERED: ACETAMINOPHEN 325 MG TABLET ONE (14:46)
== END 2020-04-08 15:04 | disposition home or self-care (01) ==
LOC: ED 13:38
DX: K70.31 Alcoholic cirrhosis of liver with ascites (principal); Z48.01 Encounter for change or removal of surgical wound dressing; I10 Essential (primary) hypertension; F17.200 Nicotine dependence, unspecified, uncomplicated
CPT/HCPCS: 99283

== ENCOUNTER 2020-04-12 14:18 | Outpatient (CLI) | payer BC ==
[2020-04-12] MEDS ORDERED: LIDOCAINE 1%, 2ML ONE (15:30)
[2020-04-12] MEDS ORDERED: ALBUMIN HUMAN 25%, 25GM/100ML IV ONE (15:30)
== END 2020-04-12 23:59 | disposition home or self-care (01) ==
LOC: RAD 14:18
PROVIDERS: ATTEND Radiology Diagnostic Radiology
DX: K70.31 Alcoholic cirrhosis of liver with ascites (principal)
CPT/HCPCS: 49083; J3490; P9047

== ENCOUNTER → 2020-04-16 | Outpatient (CLI) | payer BC ==
[~2020-04-16] MED LIST changes: +ALBUMIN HUMAN 25%, 25GM/100ML ONE; +LIDOCAINE 1%, 10ML ONE
== END | disposition home or self-care (01) ==
LOC: RAD 09:49
PROVIDERS: ATTEND Radiology Diagnostic Radiology
DX: K70.31 Alcoholic cirrhosis of liver with ascites (principal)
CPT/HCPCS: 49083; J3490; P9047

== ENCOUNTER 2020-04-19 09:44 | Outpatient (CLI) | payer BC ==
[~2020-04-19 09:44] MED LIST changes: -ALBUMIN HUMAN 25%, 25GM/100ML ONE; -LIDOCAINE 1%, 10ML ONE
[2020-04-19] MEDS ORDERED: LIDOCAINE 1%, 10ML ONE (09:57)
[2020-04-19] MEDS ORDERED: ALBUMIN HUMAN 25% 100 ML IV ONE (10:00)
[2020-04-23] MEDS ORDERED: ALBUMIN HUMAN 25%, 25GM/100ML ONE (14:00)
== END 2020-04-19 23:59 | disposition home or self-care (01) ==
LOC: RAD 09:44
PROVIDERS: ATTEND Radiology Diagnostic Radiology
DX: K70.31 Alcoholic cirrhosis of liver with ascites (principal)
CPT/HCPCS: 49083; J3490; P9047

== ENCOUNTER 2020-04-23 11:40 | Outpatient (CLI) | payer BC ==
[2020-04-23] MEDS ORDERED: LIDOCAINE 1%, 10ML ONE (11:56)
== END 2020-04-23 23:59 | disposition home or self-care (01) ==
LOC: RAD 11:40
PROVIDERS: ATTEND Radiology Diagnostic Radiology
DX: K70.31 Alcoholic cirrhosis of liver with ascites (principal); F17.210 Nicotine dependence, cigarettes, uncomplicated; Z88.1 Allergy status to other antibiotic agents; Z88.0 Allergy status to penicillin; Z88.8 Allergy status to other drugs, medicaments and biological substances; Z79.899 Other long term (current) drug therapy; Z72.89 Other problems related to lifestyle
CPT/HCPCS: 49083; J3490; P9047

== ENCOUNTER 2020-04-26 09:32 | Outpatient (CLI) | payer BC ==
[2020-04-26] MEDS ORDERED: LIDOCAINE 1%, 10ML ONE (09:48)
[2020-04-26] MEDS ORDERED: ALBUMIN HUMAN 25%, 25GM/100ML ONE (10:15)
== END 2020-04-26 23:59 | disposition home or self-care (01) ==
LOC: RAD 09:32
PROVIDERS: ATTEND Radiology Diagnostic Radiology
DX: K70.31 Alcoholic cirrhosis of liver with ascites (principal); R10.9 Unspecified abdominal pain; R14.0 Abdominal distension (gaseous); N17.9 Acute kidney failure, unspecified; E83.51 Hypocalcemia
CPT/HCPCS: 49083; J3490; P9047

== ENCOUNTER 2020-04-30 09:37 | Outpatient (CLI) | payer BC ==
[2020-04-30] MEDS ORDERED: LIDOCAINE 1%, 10ML ONE (09:45)
[2020-04-30] MEDS ORDERED: ALBUMIN HUMAN 25%, 25GM/100ML ONE (10:20)
== END 2020-04-30 23:59 | disposition home or self-care (01) ==
LOC: RAD 09:37
PROVIDERS: ATTEND Radiology Diagnostic Radiology
DX: K70.31 Alcoholic cirrhosis of liver with ascites (principal)
CPT/HCPCS: 49083; J3490; P9047

== ENCOUNTER → 2020-05-03 | Outpatient (CLI) | payer BC ==
[~2020-05-03] MED LIST changes: +ALBUMIN HUMAN 25% 100 ML IV ONE; +LIDOCAINE 1%, 10ML ONE
== END | disposition home or self-care (01) ==
LOC: RAD 10:38
PROVIDERS: ATTEND Radiology Diagnostic Radiology
DX: K70.31 Alcoholic cirrhosis of liver with ascites (principal)
CPT/HCPCS: 49083; J3490; P9047

== ENCOUNTER 2020-05-06 14:41 | Outpatient (CLI) | payer BC ==
[~2020-05-06 14:41] MED LIST changes: -ALBUMIN HUMAN 25% 100 ML IV ONE
[2020-05-06] MEDS ORDERED: LIDOCAINE 1%, 10ML ONE (15:08)
[2020-05-06] MEDS ORDERED: ALBUMIN HUMAN 25%, 25GM/100ML ONE (15:12)
== END 2020-05-06 23:59 | disposition home or self-care (01) ==
LOC: RAD 14:41
PROVIDERS: ATTEND Radiology Diagnostic Radiology
DX: K70.31 Alcoholic cirrhosis of liver with ascites (principal); F17.210 Nicotine dependence, cigarettes, uncomplicated; Z88.1 Allergy status to other antibiotic agents; Z88.8 Allergy status to other drugs, medicaments and biological substances; Z88.2 Allergy status to sulfonamides; Z79.899 Other long term (current) drug therapy
CPT/HCPCS: 49083; J3490; P9047

== ENCOUNTER 2020-05-09 08:04 | Day surgery (SDC) | payer BC ==
[~2020-05-09] VITALS: Ht 162.6 cm; Wt 72.6 kg
[~2020-05-09 08:04] MED LIST changes: -LIDOCAINE 1%, 10ML ONE
[2020-05-09 08:40] VITALS: BP 146/104
[2020-05-09] MEDS ORDERED: SODIUM CHLORIDE 0.9% 1,000 ML IV SCH (09:00)
[2020-05-09] MEDS ORDERED: FENTANYL PF 100 MCG/2ML ONE ×2 (09:46)
[2020-05-09] MEDS ORDERED: NALOXONE 1 MG/ML, 2ML ONE (09:47)
[2020-05-09] MEDS ORDERED: FLUMAZENIL 0.1 MG/1 ML, 5ML ONE (09:47)
[2020-05-09] MEDS ORDERED: MIDAZOLAM 1 MG/ML, 5ML ONE ×2 (09:47)
[2020-05-09] MEDS ORDERED: LIDOCAINE 1%, 20ML ONE (09:49)
[2020-05-09] MEDS ORDERED: OXYcodone 5 MG/5 ML ORAL.SOL UDC PO PRN (12:30)
[2020-05-09] MEDS ORDERED: OXYcodone 5 MG/5 ML ORAL.SOL UDC PO ONE (13:00)
== END 2020-05-09 13:05 | disposition home or self-care (01) ==
LOC: OUT 08:04
PROVIDERS: ATTEND Internal Medicine Gastroenterology
DX: K70.31 Alcoholic cirrhosis of liver with ascites (principal); K76.6 Portal hypertension; F17.210 Nicotine dependence, cigarettes, uncomplicated; Z79.891 Long term (current) use of opiate analgesic; Z79.899 Other long term (current) drug therapy; Z88.1 Allergy status to other antibiotic agents; Z88.2 Allergy status to sulfonamides; Z88.8 Allergy status to other drugs, medicaments and biological substances; Z90.49 Acquired absence of other specified parts of digestive tract; Z98.84 Bariatric surgery status
CPT/HCPCS: 37182; 49083; 99156; 99157; C1894; J2250; J3010; J7030; 75885; 76937; J2310

== ENCOUNTER 2020-05-10 14:10 | Emergency (ER) | payer BC ==
[~2020-05-10] VITALS: Ht 162.6 cm; Wt 70.1 kg
[2020-05-10 14:15] VITALS: BP 105/81
--- NOTE | 2020-05-10 16:25 | NUR ---
TO ROOM FROM LOBBY. NAD.
--- NOTE | 2020-05-10 16:31 | NUR ---
PER PT SHE HAS PAIN IN HER LOWER BACK. PER PT PAIN IS 9/10, "PAIN IS LIKE AN ELECTRIC SHOCK".
--- NOTE | 2020-05-10 16:33 | NUR ---
PT STATES "I AM HERE BECAUSE I NEED PAIN MEDS. I HAVE 4 DOCTORS ON MY TEAM, 3 OF THEM DO NOT PRESCRIBE GOOD PAIN MEDICATIONS AND THE OTHER ONE IS ON VACATION."
[2020-05-10] MEDS ORDERED: KETOROLAC 30 MG/1 ML ONE (17:06)
[2020-05-10] MEDS ORDERED: METHOCARBAMOL 750 MG TABLET ONE (17:06)
[2020-05-10] MEDS ORDERED: KETOROLAC 30 MG/1 ML IM ONE (17:30)
[2020-05-10] MEDS ORDERED: METHOCARBAMOL 750 MG TABLET PO ONE (17:30)
== END 2020-05-10 17:26 | disposition home or self-care (01) ==
LOC: ED 17:18
DX: M54.5 Low back pain (principal); I10 Essential (primary) hypertension; E78.5 Hyperlipidemia, unspecified; F17.200 Nicotine dependence, unspecified, uncomplicated
CPT/HCPCS: 72110; 96372; 99283; J1885

== ENCOUNTER → 2020-05-21 | Outpatient (CLI) | payer BC ==
[~2020-05-21] MED LIST changes: +ALBUMIN HUMAN 25%, 25GM/100ML ONE; +LIDOCAINE 1%, 10ML ONE
== END | disposition home or self-care (01) ==
LOC: RAD 13:45
PROVIDERS: ATTEND Nurse Practitioner
DX: R18.8 Other ascites (principal); N17.9 Acute kidney failure, unspecified; E83.51 Hypocalcemia
CPT/HCPCS: 49083; J3490; P9047

== ENCOUNTER → 2020-05-24 | Outpatient (CLI) | payer BC | END | disposition home or self-care (01) | LOC: RAD 11:15 | PROVIDERS: ATTEND Nurse Practitioner | DX: R18.8 Other ascites (principal); R94.4 Abnormal results of kidney function studies; N17.9 Acute kidney failure, unspecified; E83.51 Hypocalcemia | CPT/HCPCS: 49083; J3490; P9047 ==

== ENCOUNTER → 2020-05-28 | Outpatient (CLI) | payer BC | END | disposition home or self-care (01) | LOC: RAD 12:17 | PROVIDERS: ATTEND Nurse Practitioner | DX: R18.8 Other ascites (principal); N17.9 Acute kidney failure, unspecified; E83.51 Hypocalcemia | CPT/HCPCS: 49083; J3490; P9047 ==

== ENCOUNTER → 2020-05-31 | Outpatient (CLI) | payer BC | END | disposition home or self-care (01) | LOC: RAD 11:30 | PROVIDERS: ATTEND Nurse Practitioner | DX: R18.8 Other ascites (principal); N17.9 Acute kidney failure, unspecified; F17.210 Nicotine dependence, cigarettes, uncomplicated; Z88.1 Allergy status to other antibiotic agents; Z88.2 Allergy status to sulfonamides; Z88.8 Allergy status to other drugs, medicaments and biological substances; Z79.899 Other long term (current) drug therapy | CPT/HCPCS: 49083; J3490; P9047 ==

== ENCOUNTER 2020-06-03 10:49 | Emergency (ER) | payer BC ==
[~2020-06-03] VITALS: Ht 162.6 cm; Wt 69.6 kg
[~2020-06-03 10:49] MED LIST changes: -ALBUMIN HUMAN 25%, 25GM/100ML ONE; -LIDOCAINE 1%, 10ML ONE
[2020-06-03 11:54] LABS: BASOPHILS % (AUTO) 1 % (0-1); EOSINOPHILS % (AUTO) 1 % (1-7); LYMPHOCYTES % (AUTO) 16 % (22-44); MEAN CORPUSCULAR HEMOGLOBIN 27.3 pg (27.0-34.8); MEAN CORPUSCULAR HGB CONC 32.9 g/dL (32.4-35.8); MEAN PLATELET VOLUME 6.9 fL (7.4-10.4); MONOCYTES % (AUTO) 8 % (2-9); NEUTROPHILS % (AUTO) 74 % (42-75); PLATELET COUNT 378 x10^3/uL (130-400); RED BLOOD COUNT 5.44 x10^6/uL (3.82-5.3); RED CELL DISTRIBUTION WIDTH 16.2 % (9.6-15.2)
[2020-06-03 11:59] LABS: MD NO
[2020-06-03 12:04] LABS: ANION GAP 8 mmol/L (5-15); CALCIUM 8.8 mg/dL (8.5-10.1); CHLORIDE 101 mmol/L (98-107); INTERNATIONAL NORMALIZED RATIO 1.1 (0.93-1.1); PROTHROMBIN TIME 11.6 Seconds (9.6-11.5)
[2020-06-03 12:07] LABS: ALANINE AMINOTRANSFERASE 17 U/L (12-78); ALKALINE PHOSPHATASE 174 U/L (45-117); CREATININE 1.16 mg/dL (0.55-1.02); TOTAL PROTEIN 6.4 g/dL (6.4-8.2)
[2020-06-03] MEDS ORDERED: LIDOCAINE 1%, 10ML ONE (12:19)
--- NOTE | 2020-06-03 12:24 | NUR ---
PT TO RM FROM LOBBY
[2020-06-03] MEDS ORDERED: SODIUM CHLORIDE FLUSH 10ML SYR IVF ONE (13:00)
[2020-06-03] MEDS ORDERED: SODIUM CHLORIDE 0.9% 1,000ML IVBOLUS ONE ×2 (13:00→13:30)
[2020-06-03 13:22] VITALS: BP 151/98
[2020-06-03] MEDS ORDERED: ONDANSETRON 2MG/ML, 2ML ONE (13:25)
[2020-06-03] MEDS ORDERED: MORPHINE SULFATE 4 MG/ML, 1ML ONE ×2 (13:25→14:43)
[2020-06-03] MEDS ORDERED: ALBUMIN HUMAN 25% 100 ML IV ONE (13:30)
[2020-06-03] MEDS ORDERED: morphine SULFATE 10 MG/ML, 1ML IVPush ONE (13:30)
[2020-06-03] MEDS ORDERED: ONDANSETRON 2MG/ML, 2ML IVPush ONE (13:30)
[2020-06-03] MEDS ORDERED: MORPHINE SULFATE 4 MG/ML, 1ML IVPush PRN (15:30)
== END 2020-06-03 16:00 | disposition home or self-care (01) ==
LOC: ED 15:45
DX: K70.31 Alcoholic cirrhosis of liver with ascites (principal); E87.1 Hypo-osmolality and hyponatremia; R00.0 Tachycardia, unspecified; I12.0 Hypertensive chronic kidney disease with stage 5 chronic kidney disease or end stage renal disease; N18.2 Chronic kidney disease, stage 2 (mild); E78.5 Hyperlipidemia, unspecified
CPT/HCPCS: 36415; 49083; 80053; 82042; 83615; 85025; 85610; 87070; 87205; 89051; 93005; 96361; 96365; 96375; 96376; 99285; J2270; J2405; J3490; J7030; P9047

== ENCOUNTER 2020-06-06 09:43 | Outpatient (CLI) | payer BC ==
[2020-06-06] MEDS ORDERED: LIDOCAINE 1%, 10ML ONE (09:48)
[2020-06-06] MEDS ORDERED: ALBUMIN HUMAN 25%, 25GM/100ML ONE (10:14)
[2020-06-10] MEDS ORDERED: LIDOCAINE 1%, 10ML ONE (10:08)
== END 2020-06-06 23:59 | disposition home or self-care (01) ==
LOC: RAD 09:43
PROVIDERS: ATTEND Radiology Diagnostic Radiology
DX: R18.8 Other ascites (principal); N17.9 Acute kidney failure, unspecified; R94.4 Abnormal results of kidney function studies; E83.51 Hypocalcemia
CPT/HCPCS: 49083; J3490; P9047

== ENCOUNTER → 2020-06-10 | Outpatient (CLI) | payer BC ==
[~2020-06-10] MED LIST changes: +ALBUMIN HUMAN 25%, 25GM/100ML ONE
== END | disposition home or self-care (01) ==
LOC: RAD 09:38
PROVIDERS: ATTEND Radiology Diagnostic Radiology
DX: R18.8 Other ascites (principal); N17.9 Acute kidney failure, unspecified
CPT/HCPCS: 49083; J3490; P9047

== ENCOUNTER 2020-06-11 15:04 | Emergency (ER) | payer BC ==
[~2020-06-11] VITALS: Ht 162.6 cm; Wt 68.8 kg
[~2020-06-11 15:04] MED LIST changes: -ALBUMIN HUMAN 25%, 25GM/100ML ONE
[2020-06-11 15:19] VITALS: BP 97/61
--- NOTE | 2020-06-11 15:45 | NUR ---
PT TO ROOM AT THIS TIME.
--- NOTE | 2020-06-11 16:20 | NUR ---
PT HAS PAIN CLINIC, BUT HAS REACHED MAX ON MEDICATION PER PROVIDER. HER FOR PAIN CONTROL. UNABLE TO ASSESS PAIN DUE TO PROVIDER SHOWING UP AT BEDSIDE.
== END 2020-06-11 16:37 | disposition left against medical advice (07) ==
LOC: ED 16:15
DX: R10.9 Unspecified abdominal pain (principal); Z76.0 Encounter for issue of repeat prescription
CPT/HCPCS: 99281

== ENCOUNTER 2020-06-13 09:29 | Outpatient (CLI) | payer BC ==
[2020-06-13] MEDS ORDERED: LIDOCAINE 1%, 10ML ONE (10:11)
[2020-06-13] MEDS ORDERED: ALBUMIN HUMAN 25%, 25GM/100ML ONE (20:27)
== END 2020-06-13 23:59 | disposition home or self-care (01) ==
LOC: RAD 09:29
PROVIDERS: ATTEND Radiology Diagnostic Radiology
DX: R18.8 Other ascites (principal); N17.9 Acute kidney failure, unspecified
CPT/HCPCS: 49083; J3490; P9047

== ENCOUNTER → 2020-06-17 | Outpatient (CLI) | payer BC ==
[~2020-06-17] MED LIST changes: +ALBUMIN HUMAN 25%, 25GM/100ML ONE; +LIDOCAINE 1%, 10ML ONE
== END | disposition home or self-care (01) ==
LOC: RAD 09:36
PROVIDERS: ATTEND Radiology Diagnostic Radiology
DX: R18.8 Other ascites (principal); N17.9 Acute kidney failure, unspecified
CPT/HCPCS: 49083; J3490; P9047

== ENCOUNTER → 2020-06-20 | Outpatient (CLI) | payer BC | END | disposition home or self-care (01) | LOC: RAD 07:55 | PROVIDERS: ATTEND Radiology Diagnostic Radiology | DX: R18.8 Other ascites (principal); N17.9 Acute kidney failure, unspecified; F17.210 Nicotine dependence, cigarettes, uncomplicated; Z88.1 Allergy status to other antibiotic agents; Z88.2 Allergy status to sulfonamides; Z88.5 Allergy status to narcotic agent; Z88.8 Allergy status to other drugs, medicaments and biological substances; Z79.899 Other long term (current) drug therapy; Z82.5 Family history of asthma and other chronic lower respiratory diseases | CPT/HCPCS: 49083; J3490; P9047 ==

== ENCOUNTER → 2020-06-24 | Outpatient (CLI) | payer BC | END | disposition home or self-care (01) | LOC: RAD 07:26 | PROVIDERS: ATTEND Radiology Diagnostic Radiology | DX: R18.8 Other ascites (principal); K74.60 Unspecified cirrhosis of liver; N17.9 Acute kidney failure, unspecified | CPT/HCPCS: 49083; J3490; P9047 ==

== ENCOUNTER → 2020-06-27 | Outpatient (CLI) | payer BC ==
[~2020-06-27] MED LIST changes: -ALBUMIN HUMAN 25%, 25GM/100ML ONE
== END | disposition home or self-care (01) ==
LOC: RAD 09:33
PROVIDERS: ATTEND Radiology Diagnostic Radiology
DX: R18.8 Other ascites (principal); N17.9 Acute kidney failure, unspecified
CPT/HCPCS: 49083; J3490

== ENCOUNTER → 2020-07-01 | Outpatient (CLI) | payer BC ==
[~2020-07-01] MED LIST changes: +ALBUMIN HUMAN 25%, 25GM/100ML ONE
== END | disposition home or self-care (01) ==
LOC: RAD 09:49
PROVIDERS: ATTEND Nurse Practitioner
DX: R18.8 Other ascites (principal); N17.9 Acute kidney failure, unspecified
CPT/HCPCS: 49083; J3490; P9047

== ENCOUNTER → 2020-07-04 | Outpatient (CLI) | payer BC | END | disposition home or self-care (01) | LOC: RAD 09:32 | PROVIDERS: ATTEND Nurse Practitioner | DX: R18.8 Other ascites (principal); N17.9 Acute kidney failure, unspecified; I12.9 Hypertensive chronic kidney disease with stage 1 through stage 4 chronic kidney disease, or unspecified chronic kidney disease; N18.30 Chronic kidney disease, stage 3 unspecified; F17.210 Nicotine dependence, cigarettes, uncomplicated; Z88.1 Allergy status to other antibiotic agents; Z88.2 Allergy status to sulfonamides; Z88.8 Allergy status to other drugs, medicaments and biological substances; Z79.899 Other long term (current) drug therapy; Z90.49 Acquired absence of other specified parts of digestive tract; Z98.890 Other specified postprocedural states | CPT/HCPCS: 49083; 87070; 87205; 89051; J3490; P9047 ==

== ENCOUNTER 2020-07-07 06:14 | Emergency (ER) | payer BC ==
[~2020-07-07] VITALS: Ht 162.6 cm; Wt 60.0 kg
[~2020-07-07 06:14] MED LIST changes: -ALBUMIN HUMAN 25%, 25GM/100ML ONE; -LIDOCAINE 1%, 10ML ONE
--- NOTE | 2020-07-07 06:45 | NUR ---
PT HERE WITH ABD PAIN AND ASCITES. PT MEDICATED BY [facility]. HR ELEVATED BUT OTHER VSS. PA AT BEDSIDE. REPORT TO ADRIANA MOSS
--- NOTE | 2020-07-07 07:21 | NUR ---
PT to IR
--- NOTE | 2020-07-07 07:58 | NUR ---
PT RESTING IN BED, CALL LIGHT IN REACH.
[2020-07-07 07:59] VITALS: BP 123/84
--- NOTE | 2020-07-07 08:42 | NUR ---
DISCHARGE INSTRUCTIONS REVIEWED.
[2020-07-08] MEDS ORDERED: RIFA550T4 PO (18:22)
== END 2020-07-07 09:03 | disposition home or self-care (01) ==
LOC: ED 07:12
DX: R18.8 Other ascites (principal); R10.9 Unspecified abdominal pain; R00.0 Tachycardia, unspecified; I51.7 Cardiomegaly
CPT/HCPCS: 49083; 93005; 99285; J3490

== ENCOUNTER 2020-07-08 06:16 | Inpatient (IN) | payer BC ==
[~2020-07-08] VITALS: Ht 162.6 cm; Wt 66.9 kg
[2020-07-08] MEDS ORDERED: SODIUM CHLORIDE FLUSH 10ML SYR IVF ONE (07:00)
--- NOTE | 2020-07-08 07:08 | NUR ---
PT PRESENTS FROM HOME BIB [place]. PT WAS HERE YESTERDAY FOR BACK PAIN. PT STATES "IT FEELS LIKE GLASS IN MY BACK." PT ALSO COMPLIANING OF STOMACH PAIN THAT STARTS AT THE UMBILICUS AND "RADIATES OUT." PT STATES SHE DOESN'T REMEMBER WHEN THIS PAIN STARTED, "IT CAME ON SLOWLY AND HAS JUST GOTTEN WORSE AND WORSE AND WORSE." THIS RN DID BILATERAL BPS. RIGHT ARM BP WAS 160S/114 AND LEFT ARM BP WAS 170S/115. PT IS LAYING ON RIGHT SIDE IN POSITION OF COMFORT. REPORT TO AJAY BLAIR.
--- NOTE | 2020-07-08 07:11 | NUR ---
Report from AJAY Corona
[2020-07-08 07:14] LABS: BASOPHILS % (AUTO) 0 % (0-1); EOSINOPHILS % (AUTO) 2 % (1-7); LYMPHOCYTES % (AUTO) 8 % (22-44); MEAN CORPUSCULAR HEMOGLOBIN 27.2 pg (27.0-34.8); MEAN PLATELET VOLUME 6.6 fL (7.4-10.4); MONOCYTES % (AUTO) 7 % (2-9); NEUTROPHILS % (AUTO) 83 % (42-75); PLATELET COUNT 344 x10^3/uL (130-400); RED BLOOD COUNT 5.86 x10^6/uL (3.82-5.3); RED CELL DISTRIBUTION WIDTH 17.5 % (9.6-15.2)
--- NOTE | 2020-07-08 07:18 | NUR ---
Pt states 8/10 epigastric pain. Pt remains tachycardic and hypertensive. Called CT to for estimated wait time for scan, informed that they are waiting for lab results. No change in patients baseline from arrival. Provided with blanket, call light at the bedside. VS updated.
[2020-07-08 07:26] LABS: ALBUMIN 2.9 g/dL (3.4-5.0); ANION GAP 6 mmol/L (5-15); CALCIUM 8.4 mg/dL (8.5-10.1); CHLORIDE 107 mmol/L (98-107)
[2020-07-08 07:30] LABS: ALANINE AMINOTRANSFERASE 49 U/L (12-78); ALKALINE PHOSPHATASE 231 U/L (45-117); BILIRUBIN,TOTAL 0.8 mg/dL (0.2-1.0); CREATININE 1.06 mg/dL (0.55-1.02); TOTAL PROTEIN 6.4 g/dL (6.4-8.2)
[2020-07-08 07:40] LABS: INTERNATIONAL NORMALIZED RATIO 1.01 (0.93-1.1); PROTHROMBIN TIME 10.7 Seconds (9.6-11.5)
[2020-07-08] MEDS ORDERED: HYDROmorphone 1 MG/ML, 1ML INJ ONE ×2 (08:00→10:17)
[2020-07-08] MEDS ORDERED: HYDROmorphone 1 MG/ML, 1ML INJ IV ONE ×2 (08:00→10:30)
[2020-07-08] MEDS ORDERED: SODIUM CHLORIDE 0.9%, 500ML IVBOLUS ONE (08:00)
--- NOTE | 2020-07-08 08:05 | NUR ---
Call from CT, pt unable to lie flat on back for scan. Verbal order for pain meds, dilaudid 1mg given in CT.
[2020-07-08 08:06] LABS: MD SCAN
[2020-07-08] MEDS ORDERED: OMNIPAQUE 350 MG/ML, 100ML BOTTLE ONE (08:27)
--- NOTE | 2020-07-08 08:37 | NUR ---
Pt back from CT, pain improved, bolus infusing.
[2020-07-08] MEDS ORDERED: ALBUMIN HUMAN 25% 100 ML IV ONE (09:30)
[2020-07-08] MEDS ORDERED: PIPERACILLIN/TAZO/PMX 3.375GM 50 ML IVPB ONE (09:30)
[2020-07-08 09:45] LABS: MICROSCOPIC NOT IND
--- NOTE | 2020-07-08 10:49 | NUR ---
Family at bedside, medicated for pain. CX drawn, Albulmin infusing. VSWNL
[2020-07-08] MEDS ORDERED: PIPERACILLIN/TAZO/PMX 3.375GM 50 ML ONE (11:56)
--- NOTE | 2020-07-08 12:05 | NUR ---
ABX infusing. Family at bedside. Waiting for IR paracentesis.
--- NOTE | 2020-07-08 12:44 | NUR ---
Per Tammy PINA RN, no paracentesis today. Physician says not enough fluid after tap yesterday.
[2020-07-08] MEDS ORDERED: OXYcodone/APAP 5/325MG TABLET ONE (13:16)
[2020-07-08] MEDS ORDERED: OXYcodone IR 5MG TABLET ONE (13:37)
--- NOTE | 2020-07-08 13:41 | NUR ---
GILMER RN: PT REFUSED OXYCODONE "THEY DONT WORK"
[2020-07-08] MEDS ORDERED: MORPHINE SULFATE 4 MG/ML, 1ML ONE ×2 (14:02→16:00)
--- NOTE | 2020-07-08 14:07 | NUR ---
BREAK RN: PT REFUSED ROXICODONE. PT REPORTS SHE ALREADY TAKES IT AND IT DOES NOT WORK. PT CRYING IN BED. PT REQUESTING MORPHINE.
[2020-07-08] MEDS: OXYcodone IR 5MG TABLET PO PRN (14:12)
[2020-07-08] MEDS: morphine SULFATE 10 MG/ML, 1ML IVPush PRN ×3 (14:13→21:45)
--- NOTE | 2020-07-08 14:17 | NUR ---
BREAK RN: PT USED BEDSIDE COMMODE. PT NOW RESTING IN ROOM. CLERK TRAVEL RESERVATIONS ON. SINUS TACH NOTED. VS STABLE. CALL LIGHT IN PLACE. WILL CONTINUE TO MONTOR WHILE PRIMARY RN IS ON BREAK.
--- NOTE | 2020-07-08 14:29 | NUR ---
BREAK: REPORT GIVEN TO AJAY BLAIR
--- NOTE | 2020-07-08 16:07 | NUR ---
Pt medicated for pain. Pt complaining of not being comfortable, but not allowing this RN to assist pt into a position of comfort. Pt yelling at this RN that shes hungry, but not allowing this RN to order a food tray. Pt states that no one cares about her pain. Pt crying, throwing her BP cuff and SpO2 probe to the floor.
[2020-07-08 18:19] VITALS: BP 166/96
[2020-07-08] MEDS ORDERED: RIFA550T4 PO (18:22)
[2020-07-08 18:33] VITALS: BP 166/96
[2020-07-08] MEDS: NICOTINE 7 MG/24 HR PATCH.TD24 TD SCH (18:40)
[2020-07-08] MEDS: RIFAXIMIN 550 MG TABLET PO SCH (21:19)
[2020-07-08] MEDS: LACTULOSE 20 GM/30 ML UDC PO SCH (21:19)
[2020-07-08] MEDS: PIPERACILLIN/TAZO/PMX 3.375GM 50 ML IV SCH (21:20)
[2020-07-08 23:56] VITALS: BP 157/91
[2020-07-09] MEDS: morphine SULFATE 10 MG/ML, 1ML IVPush PRN ×3 (01:26→09:30)
[2020-07-09] MEDS: PIPERACILLIN/TAZO/PMX 3.375GM 50 ML IV SCH ×3 (05:10→21:20)
[2020-07-09 05:52] LABS: BASOPHILS % (AUTO) 0 % (0-1); EOSINOPHILS % (AUTO) 3 % (1-7); LYMPHOCYTES % (AUTO) 9 % (22-44); MEAN CORPUSCULAR HEMOGLOBIN 26.9 pg (27.0-34.8); MEAN CORPUSCULAR HGB CONC 32.7 g/dL (32.4-35.8); MEAN PLATELET VOLUME 6.7 fL (7.4-10.4); MONOCYTES % (AUTO) 8 % (2-9); NEUTROPHILS % (AUTO) 79 % (42-75); PLATELET COUNT 233 x10^3/uL (130-400); RED BLOOD COUNT 4.94 x10^6/uL (3.82-5.3); RED CELL DISTRIBUTION WIDTH 16.9 % (9.6-15.2)
[2020-07-09 05:54] LABS: MD NO
[2020-07-09 05:59] LABS: ALBUMIN 2.8 g/dL (3.4-5.0); ANION GAP 5 mmol/L (5-15); CALCIUM 8.2 mg/dL (8.5-10.1); CHLORIDE 107 mmol/L (98-107)
[2020-07-09 06:03] LABS: ALANINE AMINOTRANSFERASE 33 U/L (12-78); ALKALINE PHOSPHATASE 172 U/L (45-117); BILIRUBIN,TOTAL 0.7 mg/dL (0.2-1.0); TOTAL PROTEIN 5.5 g/dL (6.4-8.2)
[2020-07-09 07:40] VITALS: BP 159/93
[2020-07-09] MEDS: LACTULOSE 20 GM/30 ML UDC PO SCH ×3 (09:00→21:00)
[2020-07-09] MEDS: RIFAXIMIN 550 MG TABLET PO SCH ×2 (11:28→21:00)
[2020-07-09] MEDS: LORazepam 0.5MG TABLET PO PRN ×2 (11:29→21:00)
[2020-07-09] MEDS: FENTANYL 12 MCG PATCH TD SCH (12:50)
[2020-07-09 13:10] VITALS: BP 162/106
[2020-07-09] MEDS ORDERED: HYDROmorphone 2 MG/ML, 1ML ONE ×2 (13:19→14:21)
[2020-07-09] MEDS: HYDROmorphone 1 MG/ML, 1ML INJ IV PRN ×4 (13:27→21:00)
[2020-07-09] MEDS ORDERED: LIDOCAINE 1%, 10ML ONE (14:48)
[2020-07-09] MEDS: NICOTINE 7 MG/24 HR PATCH.TD24 TD SCH (17:18)
[2020-07-09] MEDS ORDERED: ONDANSETRON 2MG/ML, 2ML IVPush PRN (18:00)
[2020-07-09 20:36] VITALS: BP 150/94
[2020-07-09 23:56] VITALS: BP 158/120
[2020-07-10] MEDS: HYDROmorphone 1 MG/ML, 1ML INJ IV PRN ×3 (00:03→06:48)
[2020-07-10 05:15] LABS: BASOPHILS % (AUTO) 0 % (0-1); EOSINOPHILS % (AUTO) 4 % (1-7); LYMPHOCYTES % (AUTO) 9 % (22-44); MEAN CORPUSCULAR HEMOGLOBIN 27.2 pg (27.0-34.8); MEAN CORPUSCULAR HGB CONC 32.9 g/dL (32.4-35.8); MEAN PLATELET VOLUME 6.8 fL (7.4-10.4); MONOCYTES % (AUTO) 7 % (2-9); NEUTROPHILS % (AUTO) 80 % (42-75); PLATELET COUNT 263 x10^3/uL (130-400); RED CELL DISTRIBUTION WIDTH 16.9 % (9.6-15.2)
[2020-07-10 05:17] LABS: MD NO
[2020-07-10] MEDS: LORazepam 0.5MG TABLET PO PRN ×2 (05:21→21:11)
[2020-07-10] MEDS: PIPERACILLIN/TAZO/PMX 3.375GM 50 ML IV SCH ×3 (05:21→22:25)
[2020-07-10 05:24] LABS: ALBUMIN 2.8 g/dL (3.4-5.0); ANION GAP 6 mmol/L (5-15); CALCIUM 8.2 mg/dL (8.5-10.1); CHLORIDE 107 mmol/L (98-107)
[2020-07-10 05:28] LABS: ALANINE AMINOTRANSFERASE 33 U/L (12-78); ALKALINE PHOSPHATASE 188 U/L (45-117); BILIRUBIN,TOTAL 0.6 mg/dL (0.2-1.0); CREATININE 0.85 mg/dL (0.55-1.02); TOTAL PROTEIN 5.8 g/dL (6.4-8.2)
[2020-07-10 07:22] VITALS: BP 160/122
[2020-07-10] MEDS: LACTULOSE 20 GM/30 ML UDC PO SCH ×3 (09:00→21:02)
[2020-07-10] MEDS: RIFAXIMIN 550 MG TABLET PO SCH ×2 (09:51→21:02)
[2020-07-10] MEDS: GABAPENTIN 300 MG CAPSULE PO SCH ×3 (09:51→21:02)
[2020-07-10] MEDS: LIDODERM 5% PATCH TD SCH (09:52)
[2020-07-10] MEDS: OXYcodone IR 5MG TABLET PO PRN ×3 (11:40→22:26)
[2020-07-10] MEDS: FENTANYL 12 MCG PATCH TD SCH (11:40)
[2020-07-10 16:37] VITALS: BP 162/120
[2020-07-10] MEDS: NICOTINE 7 MG/24 HR PATCH.TD24 TD SCH (17:27)
[2020-07-10 17:40] VITALS: BP_SYST 100; BP_SYST 177; BP_DIAS 105; BP_DIAS 66
[2020-07-10] MEDS ORDERED: hydrALAzine 20 MG/ML, 1ML IV PRN (18:30)
[2020-07-10] MEDS: LIDODERM REMOVE PATCH NOTE XX SCH (20:30)
[2020-07-10 21:09] VITALS: BP 136/94
[2020-07-11 01:20] VITALS: BP 117/79
[2020-07-11] MEDS: OXYcodone IR 5MG TABLET PO PRN ×5 (02:54→21:53)
[2020-07-11] MEDS: PIPERACILLIN/TAZO/PMX 3.375GM 50 ML IV SCH ×3 (04:48→22:47)
[2020-07-11] MEDS: LORazepam 0.5MG TABLET PO PRN ×3 (04:48→21:59)
[2020-07-11] MEDS: IBUPROFEN 200 MG TABLET PO PRN ×2 (05:51→14:28)
[2020-07-11 06:39] LABS: ALBUMIN 2.7 g/dL (3.4-5.0); ANION GAP 5 mmol/L (5-15); CALCIUM 8.3 mg/dL (8.5-10.1); CHLORIDE 102 mmol/L (98-107)
[2020-07-11 06:41] LABS: BASOPHILS % (AUTO) 1 % (0-1); EOSINOPHILS % (AUTO) 4 % (1-7); LYMPHOCYTES % (AUTO) 8 % (22-44); MEAN CORPUSCULAR HEMOGLOBIN 26.9 pg (27.0-34.8); MEAN CORPUSCULAR HGB CONC 32.6 g/dL (32.4-35.8); MEAN PLATELET VOLUME 6.8 fL (7.4-10.4); MONOCYTES % (AUTO) 8 % (2-9); NEUTROPHILS % (AUTO) 80 % (42-75); PLATELET COUNT 297 x10^3/uL (130-400); RED BLOOD COUNT 5.26 x10^6/uL (3.82-5.3); RED CELL DISTRIBUTION WIDTH 17.1 % (9.6-15.2)
[2020-07-11 06:42] LABS: ALANINE AMINOTRANSFERASE 31 U/L (12-78); ALKALINE PHOSPHATASE 197 U/L (45-117); BILIRUBIN,TOTAL 0.6 mg/dL (0.2-1.0)
[2020-07-11 06:44] LABS: MD NO
[2020-07-11 07:24] VITALS: BP 132/90
[2020-07-11] MEDS: LIDODERM 5% PATCH TD SCH (08:29)
[2020-07-11] MEDS: RIFAXIMIN 550 MG TABLET PO SCH ×2 (08:29→21:52)
[2020-07-11] MEDS: GABAPENTIN 300 MG CAPSULE PO SCH ×3 (08:29→21:52)
[2020-07-11] MEDS: LACTULOSE 20 GM/30 ML UDC PO SCH ×2 (08:32→14:24)
[2020-07-11 13:52] VITALS: BP 147/103
[2020-07-11 14:23] VITALS: BP 137/91
[2020-07-11] MEDS: NICOTINE 7 MG/24 HR PATCH.TD24 TD SCH (17:29)
[2020-07-11 20:14] VITALS: BP 126/96
[2020-07-11] MEDS: LIDODERM REMOVE PATCH NOTE XX SCH (20:30)
[2020-07-11] MEDS ORDERED: LACTULOSE 20 GM/30 ML UDC PO SCH (21:00)
[2020-07-11] MEDS: FENTANYL 12 MCG PATCH TD SCH (22:53)
[2020-07-12] MEDS: IBUPROFEN 200 MG TABLET PO PRN (01:07)
[2020-07-12 01:09] VITALS: BP 146/94
[2020-07-12] MEDS: OXYcodone IR 5MG TABLET PO PRN ×2 (01:42→07:36)
[2020-07-12 06:57] VITALS: BP_SYST 142; BP_SYST 146; BP_DIAS 103; BP_DIAS 106
[2020-07-12] MEDS: GABAPENTIN 300 MG CAPSULE PO SCH (07:36)
[2020-07-12] MEDS: LORazepam 0.5MG TABLET PO PRN (07:36)
[2020-07-12] MEDS: RIFAXIMIN 550 MG TABLET PO SCH (07:36)
[2020-07-12] MEDS: LIDODERM 5% PATCH TD SCH (07:36)
[2020-07-12] MEDS: PIPERACILLIN/TAZO/PMX 3.375GM 50 ML IV SCH (07:37)
[2020-07-12] MEDS ORDERED: FENTANYL REMOVE PATCH NOTE XX SCH (08:30)
[2020-07-12] MEDS ORDERED: LACTULOSE 20 GM/30 ML UDC PO SCH (09:00)
[2020-07-12] MEDS ORDERED: ALBUMIN HUMAN 25% 100 ML IV ONE (12:00)
[2020-07-12] MEDS ORDERED: LIDO700A20 TD (12:32)
[2020-07-12] MEDS ORDERED: FENT1PAT74 TD (12:32)
[2020-07-12] MEDS ORDERED: GABA300C PO (12:32)
[2020-07-12] MEDS ORDERED: OXYC5TAB3 PO (12:32)
[2020-07-12] MEDS ORDERED: LORA-445 PO (12:32)
[2020-07-12] MEDS ORDERED: Fentanyl Remove Patch XX (12:32)
[2020-07-12 13:32] VITALS: BP 102/69
== END 2020-07-12 14:39 | disposition home or self-care (01) | DRG 871 ==
LOC: ED 06:49 → EDIP 11:43 → 5SO 18:17 → 4NW 07-11 14:05 → DCLOUNGE 07-12 14:31
PROVIDERS: ADMIT Family Medicine; ATTEND Family Medicine
PROC: 0W9G3ZZ Drainage of Peritoneal Cavity, Percutaneous Approach (ICD-10-PCS; principal; 2020-07-09)
PROC: 0W9G3ZZ Drainage of Peritoneal Cavity, Percutaneous Approach (ICD-10-PCS; 2020-07-12)
DX: A41.9 Sepsis, unspecified organism (principal); K65.2 Spontaneous bacterial peritonitis; M48.54XA Collapsed vertebra, not elsewhere classified, thoracic region, initial encounter for fracture; M48.56XA Collapsed vertebra, not elsewhere classified, lumbar region, initial encounter for fracture; E78.5 Hyperlipidemia, unspecified; G89.29 Other chronic pain; I10 Essential (primary) hypertension; I16.0 Hypertensive urgency; K70.31 Alcoholic cirrhosis of liver with ascites; K72.90 Hepatic failure, unspecified without coma; M85.80 Other specified disorders of bone density and structure, unspecified site; Z88.2 Allergy status to sulfonamides; Z88.8 Allergy status to other drugs, medicaments and biological substances
CPT/HCPCS: 36415; 82042; 82150; 82945; 84145; 89050; 89051; 96374; 99285; J3490; 49083; 71275; 74174; 80053; 81003; 83605; 83615; 83735; 85025; 85610; 87040; 87070; 87205; 93005; G0378; J1170; J2405; J2543; P9047; Q9967; J0360; J2270; J7040

== ENCOUNTER 2020-07-14 06:01 | Inpatient (IN) | payer BC ==
[~2020-07-14] VITALS: Ht 162.6 cm; Wt 59.3 kg
[~2020-07-14 06:01] MED LIST changes: +FENT1PAT74 TD; +Fentanyl Remove Patch XX; +GABA300C PO; +LIDO700A20 TD; +LORA-445 PO
[2020-07-14] MEDS ORDERED: SODIUM CHLORIDE FLUSH 10ML SYR IVF ONE (06:30)
--- NOTE | 2020-07-14 06:59 | NUR ---
REPORT RECEIVED FROM RONY FUNG PT RESTING ON GURNEY W/ CALL LIGHT IN REACH AND SIDE RAILS UPX2. RESP EVEN AND UNLABOREDNADN. Addendum: 07/14/20 at 0700 by PORTIA REPORT RECEIVED FROM RONY MOSS. PT RESTING ON GURNEY W/ CALL LIGHT IN REACH AND SIDE RAILS UPX2. RESP EVEN AND UNLABOREDNADN.
[2020-07-14 07:17] LABS: INTERNATIONAL NORMALIZED RATIO 1.04 (0.93-1.1)
[2020-07-14 07:22] LABS: ALANINE AMINOTRANSFERASE 29 U/L (12-78); ALBUMIN 2.9 g/dL (3.4-5.0); ANION GAP 7 mmol/L (5-15); BASOPHILS % (AUTO) 0 % (0-1); CALCIUM 8.8 mg/dL (8.5-10.1); CHLORIDE 98 mmol/L (98-107); CREATININE 1.01 mg/dL (0.55-1.02); EOSINOPHILS % (AUTO) 0 % (1-7); LYMPHOCYTES % (AUTO) 5 % (22-44); MEAN CORPUSCULAR HEMOGLOBIN 26.9 pg (27.0-34.8); MEAN CORPUSCULAR HGB CONC 32.4 g/dL (32.4-35.8); MEAN PLATELET VOLUME 7.2 fL (7.4-10.4); MONOCYTES % (AUTO) 7 % (2-9); NEUTROPHILS % (AUTO) 88 % (42-75); PLATELET COUNT 302 x10^3/uL (130-400); RED BLOOD COUNT 5.15 x10^6/uL (3.82-5.3)
[2020-07-14 07:26] LABS: ALKALINE PHOSPHATASE 206 U/L (45-117); BILIRUBIN,TOTAL 1.2 mg/dL (0.2-1.0); TOTAL PROTEIN 6.3 g/dL (6.4-8.2)
--- NOTE | 2020-07-14 07:30 | NUR ---
PT AMBULATED TO THE BR W/ A 1 PERSON ASSIST. URINE CUP PROVIDED.
--- NOTE | 2020-07-14 07:35 | NUR ---
REPORT GIVEN TO RAIZA MOSS. URINE SENT TO LAB.
[2020-07-14 07:51] LABS: MICROSCOPIC INDICATED
[2020-07-14 07:52] LABS: MD SCAN
--- NOTE | 2020-07-14 07:55 | NUR ---
PT ASSISTED BACK TO BED WITH ASSIST. PT PLACED BACK ON MONITOR. WILL CONTINUE T O MONITOR. CALL LIGHT WITHIN REACH
[2020-07-14] MEDS ORDERED: LIDOCAINE 1%, 10ML ONE (08:16)
[2020-07-14] MEDS ORDERED: LABETALOL 5MG/ML, 20ML IVPush ONE (08:30)
[2020-07-14] MEDS ORDERED: PIPERACILLIN/TAZO/PMX 3.375GM 50 ML IV ONE (08:30)
--- NOTE | 2020-07-14 08:50 | NUR ---
PT TO US
[2020-07-14] MEDS ORDERED: LABETALOL 5MG/ML, 20ML ONE (08:58)
[2020-07-14] MEDS ORDERED: PIPERACILLIN/TAZO/PMX 3.375GM 50 ML ONE (08:58)
[2020-07-14] MEDS ORDERED: SODIUM CHLORIDE FLUSH 10ML SYR IVF PRN (09:30)
[2020-07-14] MEDS ORDERED: HYDROmorphone 2 MG/ML, 1ML IVPush PRN (09:30)
--- NOTE | 2020-07-14 09:50 | NUR ---
PT PLACED IN HOSPITAL GOWN. PT BP HAS IMPROVED WITH ORDERED MEDS, SEE CHARTED. CONFIRMED ALLERGIES WITH PHARMACY FOR ORDERED ABX. BLOOD CULTURES DONE. ERP TALKED TO PT ABOUT ORDERED ABX, PT HAS HAD BEFORE WITH OUT INCIDENT. OKAY TO RUN ABX. PT REPOSITIONED FOR COMFORT AND ASKING FOR PAIN MED.
[2020-07-14] MEDS ORDERED: HYDROmorphone 1 MG/ML, 1ML INJ ONE ×2 (10:00→15:37)
[2020-07-14] MEDS: HYDROmorphone 1 MG/ML, 1ML INJ IVPush PRN ×2 (10:09→15:41)
--- NOTE | 2020-07-14 10:11 | NUR ---
PT MEDICATED FOR PAIN PER EMAR. PT AWARE SHE IS GOING TO BE ADMITTED. WILL CONTINUE TO MONITOR.
[2020-07-14] MEDS ORDERED: GUAIFENESIN/DM 200-20MG, 10ML UDC PO PRN (11:30)
[2020-07-14] MEDS ORDERED: hydrALAzine 20 MG/ML, 1ML IVPush PRN (11:30)
[2020-07-14] MEDS ORDERED: ONDANSETRON 2MG/ML, 2ML IVPush PRN (11:30)
[2020-07-14] MEDS ORDERED: CYCLOBENZAPRINE 10 MG TABLET PO PRN (11:30)
[2020-07-14] MEDS ORDERED: IBUPROFEN 600 MG TABLET PO PRN (11:30)
[2020-07-14] MEDS ORDERED: ZOLPIDEM 5MG TABLET PO PRN (11:30)
--- NOTE | 2020-07-14 11:31 | NUR ---
pt resting in bed. given water per erp okay. will continue to monitor.
[2020-07-14] MEDS ORDERED: FENTANYL 12 MCG PATCH TD SCH (13:00)
[2020-07-14] MEDS ORDERED: ENOXAPARIN 40 MG/0.4 ML ONE (13:06)
[2020-07-14] MEDS ORDERED: GABAPENTIN 300 MG CAPSULE ONE (13:07)
[2020-07-14] MEDS ORDERED: FAMOTIDINE 20 MG TABLET ONE (13:07)
[2020-07-14] MEDS ORDERED: LIDODERM 5% PATCH TD ONE (13:07)
[2020-07-14] MEDS: RIFAXIMIN 550 MG TABLET PO SCH ×2 (13:27→20:53)
[2020-07-14] MEDS: CIPROFLOXACIN LACTATE 200 MG in DEXTROSE 5% 100 ML IV SCH (13:27)
[2020-07-14] MEDS: LIDODERM 5% PATCH TD SCH (13:27)
[2020-07-14] MEDS: GABAPENTIN 300 MG CAPSULE PO SCH ×3 (13:27→20:53)
[2020-07-14] MEDS: FAMOTIDINE 20 MG TABLET PO SCH ×2 (13:27→20:53)
[2020-07-14] MEDS: ENOXAPARIN 40 MG/0.4 ML SQ SCH (13:31)
--- NOTE | 2020-07-14 13:43 | NUR ---
pt up walking around room. has removed her gown and put on her jacket. pt asked to remain in hospital gown as she is an admitted pt with IV. pt has removed bp cuff and o2 sat monitor. pt asked to keep these monitors so her vitals can be monitored.
--- NOTE | 2020-07-14 14:19 | NUR ---
US AT BEDSIDE.
--- NOTE | 2020-07-14 15:45 | NUR ---
PT MEDICATED FOR PAIN PER EMAR. PT RESTING CALMLY IN BED AT THIS TIME. WILL CONTINUE TO MONITOR.
[2020-07-14] MEDS: LACTULOSE 20 GM/30 ML UDC PO SCH ×2 (15:51→20:53)
--- NOTE | 2020-07-14 16:23 | NUR ---
PT RESTING CALMLY IN GURNEY WITH EYES CLOSED. NO STATED NEEDS AT THIS TIME. WILL CONTINUE TO MONITOR.
--- NOTE | 2020-07-14 17:51 | NUR ---
PT UP IN HALLWAY WALKING BACK TO ROOM FROM BATHROOM STEADILY, WITHOUT STRUGGLE. PT BED SWITCHED TO HOSPITAL BED FOR PT COMFORT. MEAL TRAY ORDERED. PT HAS PULLED OUT HER IV. STATED SHE NEEDED TO VOID BAD AND DID NOT CALL FOR ASSIST BEFORE GETTING OUT OF BED. PT ALSO REMOVED ALL MONITORS. PT HAS BEEN ASKED TO CALL FOR ASSIST SO MONITORS CAN REMAIN IN PLACE. PT STATED SHE DIDN'T WANT TO WAIT FOR SOMEONE TO COME ASSIST HER. WILL START NEW IV, WILL CONTINUE TO MONITOR.
--- NOTE | 2020-07-14 18:17 | NUR ---
REPROT GIVEN TO EDITH MOSS.
--- NOTE | 2020-07-14 18:24 | NUR ---
NICOTINE PATCH REMOVED. NEW ORDER FOR PATCH RECIEVED BY HOSPITALIST. NEW IV PLACED AT THIS TIME. WILL CONTINUE TO MONITOR.
[2020-07-14] MEDS ORDERED: NICOTINE 14MG/24 HR PATCH.TD24 TD SCH (18:30)
[2020-07-14 20:23] VITALS: BP 162/99
[2020-07-14] MEDS: LORazepam 0.5MG TABLET PO PRN (20:53)
[2020-07-14] MEDS: morphine SULFATE 10 MG/ML, 1ML IVPush PRN (20:54)
[2020-07-15] MEDS ORDERED: LIDODERM REMOVE PATCH NOTE XX SCH (00:30)
[2020-07-15] MEDS: CIPROFLOXACIN LACTATE 200 MG in DEXTROSE 5% 100 ML IV SCH ×3 (01:02→13:20)
[2020-07-15] MEDS: morphine SULFATE 10 MG/ML, 1ML IVPush PRN ×2 (01:03→08:44)
[2020-07-15 01:13] VITALS: BP 155/95
[2020-07-15 06:11] LABS: BASOPHILS % (AUTO) 1 % (0-1); EOSINOPHILS % (AUTO) 1 % (1-7); LYMPHOCYTES % (AUTO) 9 % (22-44); MEAN CORPUSCULAR HEMOGLOBIN 27.1 pg (27.0-34.8); MEAN CORPUSCULAR HGB CONC 32.8 g/dL (32.4-35.8); MEAN PLATELET VOLUME 7.1 fL (7.4-10.4); MONOCYTES % (AUTO) 8 % (2-9); NEUTROPHILS % (AUTO) 81 % (42-75); PLATELET COUNT 253 x10^3/uL (130-400); RED BLOOD COUNT 4.64 x10^6/uL (3.82-5.3); RED CELL DISTRIBUTION WIDTH 17.2 % (9.6-15.2)
[2020-07-15 06:16] LABS: ALBUMIN 2.4 g/dL (3.4-5.0); ANION GAP 7 mmol/L (5-15); CALCIUM 8.2 mg/dL (8.5-10.1); CHLORIDE 104 mmol/L (98-107)
[2020-07-15 06:19] LABS: ALANINE AMINOTRANSFERASE 25 U/L (12-78); ALKALINE PHOSPHATASE 175 U/L (45-117); BILIRUBIN,TOTAL 0.6 mg/dL (0.2-1.0); CREATININE 0.92 mg/dL (0.55-1.02); TOTAL PROTEIN 5.3 g/dL (6.4-8.2)
[2020-07-15 06:25] VITALS: BP 156/110
[2020-07-15] MEDS: OXYcodone IR 5MG TABLET PO PRN ×2 (06:25→12:10)
[2020-07-15] MEDS: LORazepam 0.5MG TABLET PO PRN (06:25)
[2020-07-15 06:35] LABS: MD NO
[2020-07-15] MEDS: LACTULOSE 20 GM/30 ML UDC PO SCH (08:44)
[2020-07-15] MEDS: RIFAXIMIN 550 MG TABLET PO SCH (08:44)
[2020-07-15] MEDS: GABAPENTIN 300 MG CAPSULE PO SCH (08:44)
[2020-07-15] MEDS: FAMOTIDINE 20 MG TABLET PO SCH (08:44)
[2020-07-15 10:58] VITALS: BP 157/90
[2020-07-15] MEDS ORDERED: CIPR250T27 PO (11:31)
[2020-07-15] MEDS: ENOXAPARIN 40 MG/0.4 ML SQ SCH (13:20)
[2020-07-15] MEDS: LIDODERM 5% PATCH TD SCH (13:20)
[2020-07-15 14:00] VITALS: BP 158/98
[2020-07-16] MEDS ORDERED: FENTANYL REMOVE PATCH NOTE XX SCH (13:00)
== END 2020-07-15 14:50 | disposition home or self-care (01) | DRG 432 ==
LOC: ED 07:08 → EDIP 10:30 → INTOOBSV 10:30 → 4NE 18:35 → OBSVTOIN 07-15 11:09 → DCLOUNGE 07-15 14:45
PROVIDERS: ADMIT Internal Medicine; ATTEND Internal Medicine
PROC: 0T9B70Z Drainage of Bladder with Drainage Device, Via Natural or Artificial Opening (ICD-10-PCS; principal; 2020-07-14)
PROC: 0W9G3ZZ Drainage of Peritoneal Cavity, Percutaneous Approach (ICD-10-PCS; 2020-07-14)
DX: K70.31 Alcoholic cirrhosis of liver with ascites (principal); K65.2 Spontaneous bacterial peritonitis; E87.1 Hypo-osmolality and hyponatremia; I50.32 Chronic diastolic (congestive) heart failure; M48.54XA Collapsed vertebra, not elsewhere classified, thoracic region, initial encounter for fracture; Z60.2 Problems related to living alone; G89.29 Other chronic pain; I11.0 Hypertensive heart disease with heart failure; I35.8 Other nonrheumatic aortic valve disorders; K59.00 Constipation, unspecified; W07.XXXA Fall from chair, initial encounter; Z82.5 Family history of asthma and other chronic lower respiratory diseases; Z87.891 Personal history of nicotine dependence; Z98.84 Bariatric surgery status; Y93.89 Activity, other specified; Y92.89 Other specified places as the place of occurrence of the external cause; Y99.8 Other external cause status; Z88.2 Allergy status to sulfonamides; Z88.1 Allergy status to other antibiotic agents; Z88.8 Allergy status to other drugs, medicaments and biological substances; Z88.5 Allergy status to narcotic agent; Z88.6 Allergy status to analgesic agent; Z90.49 Acquired absence of other specified parts of digestive tract
CPT/HCPCS: 36415; 82042; 89051; J3490; 49083; 71045; 80053; 81001; 82140; 83605; 83615; 83690; 83880; 84443; 85025; 85610; 85730; 87040; 87070; 87205; 93005; 93306; 96365; 96375; 99285; G0378; J1170; J1650; J2543; J0744; J2270

== ENCOUNTER 2020-07-17 14:47 | Outpatient (CLI) | payer BC ==
[~2020-07-17 14:47] MED LIST changes: +CIPR250T27 PO
[2020-07-17] MEDS ORDERED: LIDOCAINE 1%, 10ML ONE (14:52)
[2020-07-17] MEDS ORDERED: ALBUMIN HUMAN 25%, 25GM/100ML ONE (16:53)
== END 2020-07-17 23:59 | disposition home or self-care (01) ==
LOC: RAD 14:47
PROVIDERS: ATTEND Nurse Practitioner
DX: R18.8 Other ascites (principal); N17.9 Acute kidney failure, unspecified; I12.9 Hypertensive chronic kidney disease with stage 1 through stage 4 chronic kidney disease, or unspecified chronic kidney disease; N18.30 Chronic kidney disease, stage 3 unspecified; F17.210 Nicotine dependence, cigarettes, uncomplicated; Z88.1 Allergy status to other antibiotic agents; Z88.2 Allergy status to sulfonamides; Z79.899 Other long term (current) drug therapy; Z98.890 Other specified postprocedural states; Z90.49 Acquired absence of other specified parts of digestive tract; Z98.84 Bariatric surgery status
CPT/HCPCS: 49083; J3490; P9047

== ENCOUNTER 2020-07-22 15:01 | Outpatient (CLI) | payer BC ==
[~2020-07-22 15:01] MED LIST changes: +LIDOCAINE 1%, 10ML ONE
[2020-07-22] MEDS ORDERED: ALBUMIN HUMAN 25% 12.5 GM/50 ML ONE (16:47)
== END 2020-07-22 23:59 | disposition home or self-care (01) ==
LOC: RAD 15:01
PROVIDERS: ATTEND Nurse Practitioner
DX: R18.8 Other ascites (principal); N17.9 Acute kidney failure, unspecified
CPT/HCPCS: 49083; J3490; P9047

== ENCOUNTER 2020-07-30 13:42 | Outpatient (CLI) | payer BC ==
[~2020-07-30 13:42] MED LIST changes: -LIDOCAINE 1%, 10ML ONE
[2020-07-30] MEDS ORDERED: LIDOCAINE 1%, 10ML ONE (13:45)
[2020-07-30] MEDS ORDERED: ALBUMIN HUMAN 25%, 25GM/100ML ONE (15:39)
== END 2020-07-30 23:59 | disposition home or self-care (01) ==
LOC: RAD 13:42
PROVIDERS: ATTEND Internal Medicine Nephrology
DX: R18.8 Other ascites (principal); N17.9 Acute kidney failure, unspecified; F17.210 Nicotine dependence, cigarettes, uncomplicated; Z88.1 Allergy status to other antibiotic agents; Z88.2 Allergy status to sulfonamides; Z88.5 Allergy status to narcotic agent; Z88.8 Allergy status to other drugs, medicaments and biological substances; Z79.899 Other long term (current) drug therapy; Z79.2 Long term (current) use of antibiotics
CPT/HCPCS: 49083; J3490; P9047

== ENCOUNTER 2020-08-07 14:44 | Outpatient (CLI) | payer BC, MEDICAID ==
[2020-08-07] MEDS ORDERED: LIDOCAINE 1%, 10ML ONE (15:11)
[2020-08-07] MEDS ORDERED: ALBUMIN HUMAN 25%, 25GM/100ML ONE (15:30)
== END 2020-08-07 23:59 | disposition home or self-care (01) ==
LOC: RAD 14:44
PROVIDERS: ATTEND Radiology Diagnostic Radiology
DX: R18.8 Other ascites (principal); K74.60 Unspecified cirrhosis of liver; N17.9 Acute kidney failure, unspecified; F17.210 Nicotine dependence, cigarettes, uncomplicated; Z88.1 Allergy status to other antibiotic agents; Z88.2 Allergy status to sulfonamides; Z88.5 Allergy status to narcotic agent; Z79.899 Other long term (current) drug therapy; Z79.2 Long term (current) use of antibiotics; Z82.5 Family history of asthma and other chronic lower respiratory diseases
CPT/HCPCS: 49083; J3490; P9047

== ENCOUNTER 2020-08-12 08:19 | Emergency (ER) | payer BC ==
[~2020-08-12] VITALS: Ht 162.6 cm; Wt 57.5 kg
--- NOTE | 2020-08-12 08:26 | NUR ---
JASKARAN MEAD FROM HOME FOR ABDOMINAL SWELLING AND TENDERNESS. PT REPORTS BIWEEKLY PARACENTESIS. PT SCHEDULED FOR TOMORROW. "IT'S JUST TOO BAD" PT ALSO HAS BILATERAL LOWER LEG EDEMA.
[2020-08-12] MEDS ORDERED: ONDANSETRON 2MG/ML, 2ML ONE (08:37)
[2020-08-12] MEDS ORDERED: MORPHINE SULFATE 4 MG/ML, 1ML ONE (08:37)
[2020-08-12] MEDS ORDERED: LIDOCAINE 1%, 10ML ONE (08:54)
[2020-08-12] MEDS ORDERED: ONDANSETRON 2MG/ML, 2ML IVPush ONE (09:00)
[2020-08-12] MEDS ORDERED: MORPHINE SULFATE 4 MG/ML, 1ML IVPush PRN (09:00)
[2020-08-12 09:05] LABS: BASOPHILS % (AUTO) 1 % (0-1); EOSINOPHILS % (AUTO) 1 % (1-7); LYMPHOCYTES % (AUTO) 10 % (22-44); MEAN CORPUSCULAR HEMOGLOBIN 26.2 pg (27.0-34.8); MEAN CORPUSCULAR HGB CONC 32.4 g/dL (32.4-35.8); MONOCYTES % (AUTO) 5 % (2-9); NEUTROPHILS % (AUTO) 84 % (42-75); PLATELET COUNT 197 x10^3/uL (130-400); RED BLOOD COUNT 4.62 x10^6/uL (3.82-5.3); RED CELL DISTRIBUTION WIDTH 17.2 % (9.6-15.2)
[2020-08-12 09:07] LABS: MD NO
[2020-08-12 09:14] LABS: ALANINE AMINOTRANSFERASE 37 U/L (12-78); ALBUMIN 2.6 g/dL (3.4-5.0); ANION GAP 5 mmol/L (5-15); CALCIUM 8.3 mg/dL (8.5-10.1); CHLORIDE 97 mmol/L (98-107); CREATININE 0.95 mg/dL (0.55-1.02)
[2020-08-12 09:16] LABS: ALKALINE PHOSPHATASE 379 U/L (45-117); BILIRUBIN,TOTAL 0.4 mg/dL (0.2-1.0); TOTAL PROTEIN 5.8 g/dL (6.4-8.2)
--- NOTE | 2020-08-12 09:20 | NUR ---
PT REMAINS IN IR FOR PARACENTESIS.
[2020-08-12 09:45] LABS: INTERNATIONAL NORMALIZED RATIO 1.01 (0.93-1.1); PROTHROMBIN TIME 10.7 Seconds (9.6-11.5)
[2020-08-12 10:03] VITALS: BP 112/79
--- NOTE | 2020-08-12 10:04 | NUR ---
PT RETURNED FROM PROCEDURE, REPORTS FEELING "MUCH BETTER" PT CONCERNED ABOUT DISCHARGE TIME. ":MY RIDE IS COMING BETWEEN 10 AND 10":30 AND THEY'RE GOING TO CHARGE ME IF I'M NOT READY" PT CONCERNS RELAYED TO PROVIDER.
== END 2020-08-12 10:28 | disposition home or self-care (01) ==
LOC: ED 09:05
DX: K70.31 Alcoholic cirrhosis of liver with ascites (principal); E78.5 Hyperlipidemia, unspecified; I10 Essential (primary) hypertension; M54.9 Dorsalgia, unspecified
CPT/HCPCS: 36415; 49083; 80053; 85025; 85610; 85730; 96374; 96375; 99285; J2270; J2405; J3490

== ENCOUNTER 2020-08-14 13:53 | Outpatient (CLI) | payer BC ==
[2020-08-14] MEDS ORDERED: ALBUMIN HUMAN 25%, 25GM/100ML ONE (14:05)
[2020-08-14] MEDS ORDERED: LIDOCAINE 1%, 10ML ONE (14:12)
== END 2020-08-14 23:59 | disposition home or self-care (01) ==
LOC: RAD 13:53
PROVIDERS: ATTEND Radiology Diagnostic Radiology
DX: R18.8 Other ascites (principal); N17.9 Acute kidney failure, unspecified
CPT/HCPCS: 49083; J3490; P9047

== ENCOUNTER → 2020-08-22 | Outpatient (CLI) | payer BC | END | disposition home or self-care (01) | LOC: RAD 09:54 | PROVIDERS: ATTEND Orthopaedic Surgery | DX: S22.080B Wedge compression fracture of T11-T12 vertebra, initial encounter for open fracture (principal); M85.88 Other specified disorders of bone density and structure, other site; X58.XXXA Exposure to other specified factors, initial encounter; Y93.89 Activity, other specified; Y92.89 Other specified places as the place of occurrence of the external cause; Y99.8 Other external cause status | CPT/HCPCS: 72072; 72100 ==

== ENCOUNTER 2020-08-25 18:22 | Emergency (ER) | payer BC ==
[~2020-08-25] VITALS: Ht 162.6 cm; Wt 55.0 kg
[~2020-08-25 18:22] MED LIST changes: -OXYC5TAB3 PO; +OXYC5TAB98 PO
--- NOTE | 2020-08-25 18:26 | NUR ---
patient arrives from home with demetricesa for pain in abdomen secondary to acute liver failure five months ago. she has a large round protuberant belly that is firm. she states she gets tapped 7-10 days but couldn't because they were full
--- NOTE | 2020-08-25 19:08 | NUR ---
report to stanislav sosa.
--- NOTE | 2020-08-25 19:13 | NUR ---
REPORT RECIEVED FROM WALT MOSS
[2020-08-25] MEDS ORDERED: MORPHINE SULFATE 4 MG/ML, 1ML ONE (19:17)
[2020-08-25] MEDS ORDERED: SODIUM CHLORIDE FLUSH 10ML SYR IVF ONE (19:30)
[2020-08-25] MEDS ORDERED: MORPHINE SULFATE 4 MG/ML, 1ML IVPush PRN (19:30)
[2020-08-25] MEDS ORDERED: LIDOCAINE-MPF 1%, 5ML ONE (19:51)
--- NOTE | 2020-08-25 20:36 | NUR ---
PT IN IMAGING FOR PARACENTESIS
[2020-08-25 20:44] VITALS: BP 128/87
--- NOTE | 2020-08-25 20:44 | NUR ---
back from IR, pt states 3.5 L taken off and that she feels fine and would like to go home.
--- NOTE | 2020-08-25 23:09 | NUR ---
PT CALLED [facility] FOR RIDE HOME, THEY ARE UNABLE DUE TO SNOW AND NOT HAVING A DISABILITY PROGRAM NAVIGATOR. PT UPSET ABOUT INFORMATION. PT OFFERED TAXI VOUCHER, PT STATES SHE LIVES SECOND STORY APARTMENT AND IS NERVOUS ABOUT USING STAIRS ALONE. THIS RN ASSISTED PT TO RESTROOM. PT ABLE TO AMBULATE WITH WALKER WITHOUT ASSISTANCE. PT THEN STATES SHE USES STAIRS WITH SOMEONE NEARBY JUST IN CASE. PTS OWN WALKER AT HOME. PT UNABLE TO CALL FAMILY FOR ASSISTANCE. PT GIVENT TAXI VOUCHER TO HOME AND SHE HAS DECIDED THAT IF SHE DECIDES TO NOT USE IT SHE WILL CALL [facility] TO BE TAKEN TO [place] WITHOUT STAIRS AND WAIT FOR FAMILY IN AM. PT GIVEN WALKER. PT VERBALIZES DC INSTRUCTIONS.
== END 2020-08-25 23:14 | disposition home or self-care (01) ==
LOC: ED 18:34
DX: K70.31 Alcoholic cirrhosis of liver with ascites (principal); I10 Essential (primary) hypertension
CPT/HCPCS: 49083; 96374; 99285; J2270

== ENCOUNTER 2020-09-01 14:08 | Emergency (ER) | payer BC ==
[~2020-09-01] VITALS: Ht 162.6 cm; Wt 69.3 kg
--- NOTE | 2020-09-01 14:41 | NUR ---
PT BIB EMS FOR INCREASING LEFT ANKLE SWELLING/PAIN. PT STATES SHE HAS HAD SWELLING IN HER LEGS "FOR A LONG TIME" BUT STATES THE PAIN IS NEW. PT STATES SHE IS UNABLE TO BEAR ANY WEIGHT ON HER LEFT FOOT. PT STATES SHE HAS BEEN WEARING HER SONS SLIPPERS AROUND THE HOUSE AND NOTED A RASH TO HER LEFT LEG. PT SENSITIVE TO PALPATION. MONITORS CONNECTED. WARM BLANKETS PROVIDED. CALL LIGHT W/IN REACH
[2020-09-01] MEDS ORDERED: ONDANSETRON 2MG/ML, 2ML IVPush ONE (15:00)
[2020-09-01] MEDS ORDERED: ONDANSETRON 2MG/ML, 2ML ONE (15:02)
[2020-09-01] MEDS ORDERED: MORPHINE SULFATE 4 MG/ML, 1ML ONE ×2 (15:02→16:20)
--- NOTE | 2020-09-01 15:04 | NUR ---
LAB AT BEDSIDE. BLOOD CULTURES AND LABS COLLECTED. IV STARTED. ORDERED MEDICATIONS ADMINISTERED.
[2020-09-01] MEDS: MORPHINE SULFATE 4 MG/ML, 1ML IVPush PRN ×2 (15:05→16:23)
[2020-09-01 15:15] LABS: BASOPHILS % (AUTO) 1 % (0-1); EOSINOPHILS % (AUTO) 1 % (1-7); LYMPHOCYTES % (AUTO) 13 % (22-44); MEAN CORPUSCULAR HEMOGLOBIN 26.1 pg (27.0-34.8); MEAN CORPUSCULAR HGB CONC 32.8 g/dL (32.4-35.8); MEAN PLATELET VOLUME 6.4 fL (7.4-10.4); MONOCYTES % (AUTO) 7 % (2-9); NEUTROPHILS % (AUTO) 78 % (42-75); PLATELET COUNT 315 x10^3/uL (130-400); RED BLOOD COUNT 5.03 x10^6/uL (3.82-5.3); RED CELL DISTRIBUTION WIDTH 18.2 % (9.6-15.2)
[2020-09-01 15:16] LABS: MD NO
[2020-09-01 15:28] LABS: ALBUMIN 2.8 g/dL (3.4-5.0); ANION GAP 5 mmol/L (5-15); CALCIUM 8.4 mg/dL (8.5-10.1); CHLORIDE 104 mmol/L (98-107)
[2020-09-01 15:32] LABS: ALANINE AMINOTRANSFERASE 23 U/L (12-78); ALKALINE PHOSPHATASE 311 U/L (45-117); BILIRUBIN,TOTAL 0.7 mg/dL (0.2-1.0); CREATININE 0.81 mg/dL (0.55-1.02); TOTAL PROTEIN 6.6 g/dL (6.4-8.2)
--- NOTE | 2020-09-01 16:26 | NUR ---
PT RESTING ON GURNEY. LEFT ANKLE REPOSITIONED PER HER REQUEST. ORDERED MEDICATIONS ADMINISTERED. CALL LIGHT W/IN REACH. VSS. RADHA.
[2020-09-01] MEDS ORDERED: CLINDAMYCIN PMX 600MG/50ML 50 ML IV ONE (17:00)
[2020-09-01] MEDS ORDERED: CLINDAMYCIN PMX 600MG/50ML 50 ML ONE (17:10)
[2020-09-01 17:49] VITALS: BP 121/78
--- NOTE | 2020-09-01 17:49 | NUR ---
PT SITTING UP ON GURNEY. FOOD PROVIDED. VSS. NAD. CALL LIGHT W/IN REACH
--- NOTE | 2020-09-01 17:50 | NUR ---
ULTRASOUND AT BEDSIDE.
--- NOTE | 2020-09-01 19:19 | NUR ---
PT TO DISCHARGE IN WHEELCHAIR. PT ENCOURAGED TO FOLLOWUP DISCUSSED. PT EDUCATED TO RETURN TO THE ED WITH WORSENING SYMPTOMS
== END 2020-09-01 19:21 | disposition home or self-care (01) ==
LOC: ED 14:35
DX: L03.116 Cellulitis of left lower limb (principal); M79.672 Pain in left foot; I10 Essential (primary) hypertension; E78.5 Hyperlipidemia, unspecified; F17.200 Nicotine dependence, unspecified, uncomplicated; Z88.1 Allergy status to other antibiotic agents; Z88.2 Allergy status to sulfonamides
CPT/HCPCS: 36415; 73610; 80053; 83605; 84145; 85025; 87040; 93971; 96365; 96375; 96376; 99285; J2270; J2405

== ENCOUNTER 2020-09-02 13:32 | Outpatient (CLI) | payer BC ==
[2020-09-02] MEDS ORDERED: LIDOCAINE 1%, 10ML ONE (13:45)
[2020-09-02] MEDS ORDERED: ALBUMIN HUMAN 25%, 25GM/100ML ONE (14:08)
== END 2020-09-02 23:59 | disposition home or self-care (01) ==
LOC: RAD 13:32
PROVIDERS: ATTEND Radiology Diagnostic Radiology
DX: K70.31 Alcoholic cirrhosis of liver with ascites (principal)
CPT/HCPCS: 49083; J3490; P9047

== ENCOUNTER 2020-09-06 13:17 | Outpatient (CLI) | payer BC ==
[2020-09-06] MEDS ORDERED: LIDOCAINE 1%, 10ML ONE (14:04)
== END 2020-09-06 23:59 | disposition home or self-care (01) ==
LOC: RAD 13:17
PROVIDERS: ATTEND Radiology Diagnostic Radiology
DX: K70.31 Alcoholic cirrhosis of liver with ascites (principal); N18.30 Chronic kidney disease, stage 3 unspecified; F17.210 Nicotine dependence, cigarettes, uncomplicated; Z88.1 Allergy status to other antibiotic agents; Z88.8 Allergy status to other drugs, medicaments and biological substances; Z88.2 Allergy status to sulfonamides; Z79.899 Other long term (current) drug therapy; Z90.49 Acquired absence of other specified parts of digestive tract; Z98.84 Bariatric surgery status; Z98.890 Other specified postprocedural states; Z79.2 Long term (current) use of antibiotics; Z72.89 Other problems related to lifestyle; Z82.5 Family history of asthma and other chronic lower respiratory diseases
CPT/HCPCS: 49083; J3490

== ENCOUNTER 2020-09-09 10:02 | Inpatient (IN) | payer BC ==
[~2020-09-09] VITALS: Ht 162.6 cm; Wt 64.1 kg
--- NOTE | 2020-09-09 10:05 | NUR ---
PT BIBA FROM HOME, C/O BILAT FOOT PAIN/ SWELLING, REDNESS & ASCITES X1WEEK, HX OF SAME. PIV, 4MG ZOFRAN, 2MG MORPHINE, MARINE ELECTRONICS TECHNICIAN PER EMS. RESPONDS APPROPRIATELY, NAD/VSS. NO RESPIRATORY DISTRESS NOTED. PT TRANSFERRED SELF FROM STRETCHER TO [place], CHANGED INTO GOWN, FEET ELEVATED FOR COMFORT. CALL LIGHT WITHIN REACH.
[2020-09-09] MEDS ORDERED: PLEASE ENTER HEIGHT AND WEIGHT MC SCH (10:30)
[2020-09-09 10:49] LABS: BASOPHILS % (AUTO) 1 % (0-1); EOSINOPHILS % (AUTO) 1 % (1-7); LYMPHOCYTES % (AUTO) 16 % (22-44); MEAN CORPUSCULAR HGB CONC 32.9 g/dL (32.4-35.8); MEAN PLATELET VOLUME 6.5 fL (7.4-10.4); MONOCYTES % (AUTO) 9 % (2-9); NEUTROPHILS % (AUTO) 73 % (42-75); PLATELET COUNT 290 x10^3/uL (130-400); RED BLOOD COUNT 4.66 x10^6/uL (3.82-5.3); RED CELL DISTRIBUTION WIDTH 18.2 % (9.6-15.2)
[2020-09-09 10:55] LABS: MD NO
[2020-09-09 10:56] LABS: ALANINE AMINOTRANSFERASE 21 U/L (12-78); ANION GAP 7 mmol/L (5-15); CALCIUM 8.4 mg/dL (8.5-10.1); CHLORIDE 103 mmol/L (98-107); CREATININE 0.88 mg/dL (0.55-1.02)
[2020-09-09] MEDS ORDERED: MORPHINE SULFATE 4 MG/ML, 1ML ONE ×2 (10:57→11:33)
[2020-09-09 10:59] LABS: ALKALINE PHOSPHATASE 276 U/L (45-117); BILIRUBIN,TOTAL 0.8 mg/dL (0.2-1.0)
[2020-09-09] MEDS: MORPHINE SULFATE 4 MG/ML, 1ML IVPush PRN ×2 (11:01→11:35)
--- NOTE | 2020-09-09 11:04 | NUR ---
PT CALMLY LAYING ON GURNEY, AWAKE AND TEXTING ON PHONE, RESPONDS APPROPRIATLEY TO STAFF, PAIN MEDICATED PER EMAR, COMFORT MEASURES PROVIDED, CALL LIGHT WITHIN REACH.
[2020-09-09] MEDS ORDERED: KETOROLAC 30 MG/1 ML ONE (11:51)
[2020-09-09] MEDS ORDERED: HYDROmorphone 1 MG/ML, 1ML INJ ONE ×2 (11:51→12:37)
[2020-09-09] MEDS: HYDROmorphone 2 MG/ML, 1ML IVPush PRN ×2 (11:54→12:46)
--- NOTE | 2020-09-09 11:57 | NUR ---
BREAK RN: MEDICATED WITH DILAUDID AND TORDOL PER ORDERS ,PAIN IN LOWER EXTREMITIES 05/11. ORDERED MEAL, PROVIDED WITH PUDDING AND WATER
[2020-09-09] MEDS ORDERED: VANCOMYCIN 1,500 MG in SODIUM CHLORIDE 0.9% 250 ML IV ONE (12:00)
[2020-09-09] MEDS ORDERED: VANCOMYCIN PER PHARMACY MC PRN ×2 (12:00→17:30)
[2020-09-09] MEDS ORDERED: KETOROLAC 30 MG/1 ML IVPush ONE (12:00)
--- NOTE | 2020-09-09 12:06 | NUR ---
BREAK RN: REPOSITIONED PATIENT, SPOKE WITH DR. SNYDER REGARDING BLOOD CULTURE X 2 PRIOR TO ANTBX GIVEN. DR[address] SNYDER STATES YES AND WILL BE ORDERING LAB
--- NOTE | 2020-09-09 12:51 | NUR ---
PT TO CT
--- NOTE | 2020-09-09 13:12 | NUR ---
Pt to be admitted to MEDICAL, [id number]. Report called to KRYSTINA FLAHERTY. PT TRANSFERRED FROM CT
[2020-09-09] MEDS ORDERED: OMNIPAQUE 350 MG/ML, 100ML BOTTLE ONE (13:40)
[2020-09-09 14:05] VITALS: BP 145/83
[2020-09-09 14:19] VITALS: BP 145/83
[2020-09-09] MEDS ORDERED: hydrALAzine 20 MG/ML, 1ML IVPush PRN (17:30)
[2020-09-09] MEDS: HEPARIN 5,000 UNITS/ML, 1ML SQ SCH (17:30)
[2020-09-09] MEDS ORDERED: BISACODYL 10 MG SUPP PR PRN (17:30)
[2020-09-09] MEDS ORDERED: ONDANSETRON ODT 4 MG PO PRN (17:30)
[2020-09-09] MEDS ORDERED: MELATONIN 5 MG TABLET PO PRN (17:30)
[2020-09-09] MEDS ORDERED: ONDANSETRON 2MG/ML, 2ML IVPush PRN (17:30)
[2020-09-09] MEDS ORDERED: ACETAMINOPHEN 325 MG TABLET PO PRN (17:30)
[2020-09-09] MEDS ORDERED: PHARMACOKINETIC CONSULTATION MC ONE (18:00)
[2020-09-09] MEDS ORDERED: LORazepam 0.5MG TABLET PO PRN (18:00)
[2020-09-09] MEDS ORDERED: PHARMACOKINETIC MONITORING MC PRN (18:00)
[2020-09-09] MEDS: OXYcodone IR 5MG TABLET PO PRN (18:12)
[2020-09-09] MEDS: GABAPENTIN 300 MG CAPSULE PO SCH ×2 (18:13→19:50)
[2020-09-09] MEDS: CEFTRIAXONE PMX 1GM/50ML 50 ML IV SCH (18:20)
[2020-09-09] MEDS: LACTULOSE 20 GM/30 ML UDC PO SCH ×2 (18:20→20:49)
[2020-09-09] MEDS ORDERED: ALBUMIN HUMAN 25% 100 ML IV ONE (19:00)
[2020-09-09] MEDS: morphine SULFATE 10 MG/ML, 1ML IVPush PRN (19:48)
[2020-09-09 20:34] VITALS: BP 125/78
[2020-09-09] MEDS: RIFAXIMIN 550 MG TABLET PO SCH (20:48)
[2020-09-09] MEDS: SPIRONOLACTONE 50 MG TABLET PO SCH (20:48)
[2020-09-09] MEDS ORDERED: TRAZODONE 50MG TABLET PO ONE (21:00)
[2020-09-09] MEDS ORDERED: FUROSEMIDE 20 MG TABLET PO SCH (21:00)
[2020-09-09] MEDS ORDERED: LACTULOSE 10 GM/15 ML UDC PO SCH (21:00)
[2020-09-10] MEDS: HEPARIN 5,000 UNITS/ML, 1ML SQ SCH ×3 (01:00→15:20)
[2020-09-10] MEDS: morphine SULFATE 10 MG/ML, 1ML IVPush PRN ×6 (01:03→22:36)
[2020-09-10 05:54] LABS: BASOPHILS % (AUTO) 1 % (0-1); EOSINOPHILS % (AUTO) 2 % (1-7); LYMPHOCYTES % (AUTO) 16 % (22-44); MEAN CORPUSCULAR HGB CONC 33.1 g/dL (32.4-35.8); MEAN PLATELET VOLUME 6.5 fL (7.4-10.4); MONOCYTES % (AUTO) 8 % (2-9); NEUTROPHILS % (AUTO) 73 % (42-75); PLATELET COUNT 227 x10^3/uL (130-400); RED BLOOD COUNT 4.41 x10^6/uL (3.82-5.3); RED CELL DISTRIBUTION WIDTH 17.9 % (9.6-15.2)
[2020-09-10 05:56] LABS: MD NO
[2020-09-10 06:03] LABS: INTERNATIONAL NORMALIZED RATIO 1.11 (0.93-1.1); PROTHROMBIN TIME 11.9 Seconds (9.6-11.5)
[2020-09-10 06:05] LABS: ALBUMIN 2.2 g/dL (3.4-5.0); ANION GAP 8 mmol/L (5-15); CALCIUM 7.6 mg/dL (8.5-10.1); CHLORIDE 101 mmol/L (98-107)
[2020-09-10 06:14] LABS: ALANINE AMINOTRANSFERASE 16 U/L (12-78); ALKALINE PHOSPHATASE 221 U/L (45-117); BILIRUBIN,TOTAL 0.5 mg/dL (0.2-1.0); CHOL/HDL RATIO 1.8; CHOLESTEROL, TOTAL 112 mg/dL (140-239); HDL CHOL % 56 % (28-40); HDL CHOLESTEROL (DIRECT) 63 mg/dL (40-60); LDL CHOLESTEROL,CALCULATED 32 mg/dL (54-169); LDL/HDL RATIO 0.5 (0.5-3.0); TOTAL PROTEIN 5.1 g/dL (6.4-8.2); TRIGLYCERIDES 85 mg/dL (50-200); VLDL CHOLESTEROL 17 mg/dL (0-25)
[2020-09-10] MEDS: PANTOPRAZOLE 40MG TABLET PO SCH (07:30)
[2020-09-10 07:42] VITALS: BP 103/67
[2020-09-10] MEDS: LACTULOSE 20 GM/30 ML UDC PO SCH ×4 (08:08→21:09)
[2020-09-10] MEDS: VANCOMYCIN 1,200 MG in SODIUM CHLORIDE 0.9% 250 ML IV SCH (08:08)
[2020-09-10] MEDS: SPIRONOLACTONE 50 MG TABLET PO SCH ×2 (08:09→21:06)
[2020-09-10] MEDS: GABAPENTIN 300 MG CAPSULE PO SCH ×4 (08:09→21:14)
[2020-09-10] MEDS: RIFAXIMIN 550 MG TABLET PO SCH ×2 (08:09→21:15)
[2020-09-10] MEDS: FUROSEMIDE 20 MG/2 ML IV SCH ×3 (08:46→21:06)
[2020-09-10 12:17] LABS: MICROSCOPIC NOT IND
[2020-09-10 12:46] VITALS: BP 121/81
[2020-09-10] MEDS: NICOTINE 14MG/24 HR PATCH.TD24 TD SCH (16:00)
[2020-09-10] MEDS: CEFTRIAXONE PMX 1GM/50ML 50 ML IV SCH (17:30)
[2020-09-10 19:20] VITALS: BP 121/76
[2020-09-10] MEDS: OXYcodone IR 5MG TABLET PO PRN (21:16)
[2020-09-10] MEDS ORDERED: TRAZODONE 50MG TABLET PO PRN (22:00)
[2020-09-11] MEDS: HEPARIN 5,000 UNITS/ML, 1ML SQ SCH ×3 (00:56→17:40)
[2020-09-11] MEDS: OXYcodone IR 5MG TABLET PO PRN ×6 (01:13→23:04)
[2020-09-11] MEDS: VANCOMYCIN 1,200 MG in SODIUM CHLORIDE 0.9% 250 ML IV SCH ×2 (02:00→19:49)
[2020-09-11] MEDS: morphine SULFATE 10 MG/ML, 1ML IVPush PRN ×4 (02:50→14:21)
[2020-09-11] MEDS: PANTOPRAZOLE 40MG TABLET PO SCH ×2 (07:30→08:38)
[2020-09-11 07:35] VITALS: BP 107/77
[2020-09-11] MEDS: GABAPENTIN 300 MG CAPSULE PO SCH ×3 (08:39→19:57)
[2020-09-11] MEDS: FUROSEMIDE 20 MG/2 ML IV SCH ×3 (08:39→19:49)
[2020-09-11] MEDS: LACTULOSE 20 GM/30 ML UDC PO SCH ×4 (08:39→19:49)
[2020-09-11] MEDS: SPIRONOLACTONE 50 MG TABLET PO SCH (08:39)
[2020-09-11] MEDS: RIFAXIMIN 550 MG TABLET PO SCH ×2 (08:40→19:57)
[2020-09-11 08:51] LABS: ANION GAP 8 mmol/L (5-15); CALCIUM 7.7 mg/dL (8.5-10.1); CHLORIDE 98 mmol/L (98-107); CREATININE 0.87 mg/dL (0.55-1.02)
[2020-09-11 14:05] VITALS: BP 127/87
[2020-09-11] MEDS ORDERED: SPIRONOLACTONE 25 MG TABLET PO ONE (16:00)
[2020-09-11] MEDS ORDERED: POTASSIUM CHLORIDE 20 MEQ TAB.ER.PRT PO ONE (16:00)
[2020-09-11] MEDS ORDERED: ALBUMIN HUMAN 25% 100 ML IV PRN (16:00)
[2020-09-11] MEDS ORDERED: MAGNESIUM SULFATE PMX 4GM/100M 100 ML IVPB ONE (16:00)
[2020-09-11] MEDS: CEFTRIAXONE PMX 1GM/50ML 50 ML IV SCH (17:34)
[2020-09-11] MEDS: NICOTINE 14MG/24 HR PATCH.TD24 TD SCH (17:36)
[2020-09-11] MEDS: LIDODERM 5% PATCH TD SCH (17:36)
[2020-09-11] MEDS: BACLOFEN 10 MG TABLET PO SCH ×2 (17:37→19:57)
[2020-09-11 19:49] VITALS: BP 118/78
[2020-09-11] MEDS ORDERED: LIDO700A20 TD (21:52)
[2020-09-11] MEDS ORDERED: BACL-19 PO (21:52)
[2020-09-11] MEDS ORDERED: LACT20SO13 PO (21:52)
[2020-09-11] MEDS ORDERED: SPIR25TA PO (21:53)
[2020-09-11] MEDS ORDERED: NICO-486 TD (21:53)
[2020-09-11] MEDS ORDERED: OXYC5TAB98 PO (21:53)
[2020-09-11] MEDS ORDERED: FURO40TA6 PO (22:01)
[2020-09-12] MEDS: HEPARIN 5,000 UNITS/ML, 1ML SQ SCH ×3 (01:40→15:32)
[2020-09-12] MEDS: OXYcodone IR 5MG TABLET PO PRN ×3 (03:08→13:30)
[2020-09-12 06:19] LABS: BASOPHILS % (AUTO) 1 % (0-1); EOSINOPHILS % (AUTO) 2 % (1-7); LYMPHOCYTES % (AUTO) 19 % (22-44); MD NO; MEAN CORPUSCULAR HGB CONC 33.2 g/dL (32.4-35.8); MEAN PLATELET VOLUME 6.7 fL (7.4-10.4); MONOCYTES % (AUTO) 9 % (2-9); NEUTROPHILS % (AUTO) 70 % (42-75); PLATELET COUNT 213 x10^3/uL (130-400); RED BLOOD COUNT 4.17 x10^6/uL (3.82-5.3); RED CELL DISTRIBUTION WIDTH 18.3 % (9.6-15.2)
[2020-09-12 06:28] LABS: ALBUMIN 2.3 g/dL (3.4-5.0); ANION GAP 7 mmol/L (5-15); CALCIUM 7.8 mg/dL (8.5-10.1); CHLORIDE 97 mmol/L (98-107)
[2020-09-12 06:33] LABS: ALANINE AMINOTRANSFERASE 14 U/L (12-78); ALKALINE PHOSPHATASE 202 U/L (45-117); BILIRUBIN,TOTAL 0.5 mg/dL (0.2-1.0); CREATININE 0.83 mg/dL (0.55-1.02); TOTAL PROTEIN 5.3 g/dL (6.4-8.2)
[2020-09-12 06:50] VITALS: BP 111/75
[2020-09-12] MEDS: PANTOPRAZOLE 40MG TABLET PO SCH (07:30)
[2020-09-12] MEDS ORDERED: POTASSIUM CHLORIDE 20 MEQ TAB.ER.PRT PO ONE (08:00)
[2020-09-12] MEDS ORDERED: MAGNESIUM SULFATE PMX 2GM/50ML 50 ML IV ONE (08:00)
[2020-09-12] MEDS: RIFAXIMIN 550 MG TABLET PO SCH (08:21)
[2020-09-12] MEDS: SPIRONOLACTONE 25 MG TABLET PO SCH ×2 (08:21→15:00)
[2020-09-12] MEDS: BACLOFEN 10 MG TABLET PO SCH ×2 (08:22→15:38)
[2020-09-12] MEDS: FUROSEMIDE 40 MG TABLET PO SCH ×2 (08:22→15:37)
[2020-09-12] MEDS: GABAPENTIN 300 MG CAPSULE PO SCH ×2 (08:22→15:38)
[2020-09-12] MEDS: LACTULOSE 20 GM/30 ML UDC PO SCH ×2 (08:22→15:31)
[2020-09-12] MEDS ORDERED: LIDOCAINE 1%, 10ML ONE (08:52)
[2020-09-12] MEDS ORDERED: AMOXICILLIN/CLAV 875-125MG TABLET PO SCH (12:30)
[2020-09-12 12:56] VITALS: BP 119/80
[2020-09-12] MEDS ORDERED: AMOX1TAB64 PO (13:08)
[2020-09-12] MEDS ORDERED: MAGN400T22 PO (13:15)
[2020-09-12] MEDS: VANCOMYCIN 1,200 MG in SODIUM CHLORIDE 0.9% 250 ML IV SCH (14:00)
[2020-09-12] MEDS: LIDODERM 5% PATCH TD SCH (15:32)
[2020-09-12] MEDS ORDERED: SPIRONOLACTONE 50 MG TABLET ONE (15:40)
[2020-09-12] MEDS: NICOTINE 14MG/24 HR PATCH.TD24 TD SCH (15:43)
== END 2020-09-12 17:12 | disposition home or self-care (01) | DRG 433 ==
LOC: ED 10:45 → EDIP 12:45 → 3N 12:53
PROVIDERS: ADMIT Internal Medicine; ATTEND Internal Medicine
PROC: 0W9G3ZZ Drainage of Peritoneal Cavity, Percutaneous Approach (ICD-10-PCS; principal; 2020-09-09)
PROC: 0W9G3ZZ Drainage of Peritoneal Cavity, Percutaneous Approach (ICD-10-PCS; 2020-09-12)
DX: K70.31 Alcoholic cirrhosis of liver with ascites (principal); K76.6 Portal hypertension; L03.116 Cellulitis of left lower limb; L03.115 Cellulitis of right lower limb; K72.90 Hepatic failure, unspecified without coma; E78.5 Hyperlipidemia, unspecified; F17.210 Nicotine dependence, cigarettes, uncomplicated; I10 Essential (primary) hypertension; Z82.5 Family history of asthma and other chronic lower respiratory diseases; Z90.49 Acquired absence of other specified parts of digestive tract; Z98.84 Bariatric surgery status
CPT/HCPCS: 36415; 73610; 96374; 96375; 96376; 99285; J3490; 49083; 80048; 80053; 80061; 80202; 81003; 82140; 83735; 84100; 84443; 85025; 85610; 87040; G0378; J0696; J1170; J1885; J3370; P9047; Q9967; J1940; J2270; J3475; J7050

== ENCOUNTER 2020-09-16 13:50 | Outpatient (CLI) | payer BC ==
[~2020-09-16 13:50] MED LIST changes: +AMOX1TAB64 PO; +LIDOCAINE 1%, 10ML ONE; +MAGN400T22 PO; +NICO-486 TD; +SPIR25TA PO
[2020-09-16] MEDS ORDERED: LIDOCAINE 1%, 10ML ONE (14:15)
== END 2020-09-16 23:59 | disposition home or self-care (01) ==
LOC: RAD 13:50
PROVIDERS: ATTEND Radiology Diagnostic Radiology
DX: K70.31 Alcoholic cirrhosis of liver with ascites (principal)
CPT/HCPCS: 49083; J3490

== ENCOUNTER 2020-09-24 14:00 | Outpatient (CLI) | payer BC ==
[~2020-09-24 14:00] MED LIST changes: -LIDOCAINE 1%, 10ML ONE
[2020-09-24] MEDS ORDERED: LIDOCAINE 1%, 10ML ONE (14:34)
== END 2020-09-24 23:59 | disposition home or self-care (01) ==
LOC: RAD 14:00
PROVIDERS: ATTEND Nurse Practitioner
DX: K70.30 Alcoholic cirrhosis of liver without ascites (principal)
CPT/HCPCS: 49083; J3490

== ENCOUNTER 2020-09-26 14:25 | Emergency (ER) | payer BC ==
[~2020-09-26] VITALS: Ht 162.6 cm; Wt 75.0 kg
--- NOTE | 2020-09-26 14:30 | NUR ---
BIB EMS FOR C/O BACK PAIN. HX CHRONIC BACK PAIN. STATES SHE HAD SURGERY SCHEDULED TODAY FOR HER BACK BUT HER PAIN WAS SO SEVERE SHE DID NOT COME IN FOR IT. PER PT TAKES OXY AT HOME AND RAN OUT LAST NIGHT. PT ALSO NOTED TO HAVE DISTENDED ABD SECONDARY TO LIVER CIRRHOSIS AND L FOOT WOUNDS. DOES NOT SEE WOUND CARE. VS SKEIN YARN DRIER BP 142/90, HR 85 NSR, 100% 2L NC, BS 124. MONITORS APPLIED. WARM BLANKET PROVIDED. PT SATING 100% RA AT THIS TIME. TONYA. NELIS. ALYA TAYLOR AT BEDSIDE FOR EVAL.
[2020-09-26] MEDS ORDERED: CLINDAMYCIN PMX 900MG/50ML 50 ML ONE (14:40)
--- NOTE | 2020-09-26 14:54 | NUR ---
BREAK RN: LAB IN ROOM GETTING BOTH BLOOD CULTURES
[2020-09-26] MEDS ORDERED: CLINDAMYCIN PMX 900MG/50ML 50 ML IV ONE (15:00)
[2020-09-26] MEDS ORDERED: SODIUM CHLORIDE 0.9% 1,000 ML IV ONE (15:00)
[2020-09-26] MEDS ORDERED: SODIUM CHLORIDE FLUSH 10ML SYR IVF ONE (15:00)
--- NOTE | 2020-09-26 15:12 | NUR ---
break rn: both blood cultures drawn before abx given
[2020-09-26 15:13] LABS: BASOPHILS % (AUTO) 1 % (0-1); EOSINOPHILS % (AUTO) 1 % (1-7); LYMPHOCYTES % (AUTO) 18 % (22-44); MEAN CORPUSCULAR HEMOGLOBIN 25.5 pg (27.0-34.8); MEAN CORPUSCULAR HGB CONC 32.9 g/dL (32.4-35.8); MEAN PLATELET VOLUME 6.8 fL (7.4-10.4); MONOCYTES % (AUTO) 8 % (2-9); NEUTROPHILS % (AUTO) 73 % (42-75); PLATELET COUNT 307 x10^3/uL (130-400); RED BLOOD COUNT 4.31 x10^6/uL (3.82-5.3); RED CELL DISTRIBUTION WIDTH 18.1 % (9.6-15.2)
[2020-09-26 15:14] LABS: MD NO
[2020-09-26 15:23] LABS: ALBUMIN 2.9 g/dL (3.4-5.0); ANION GAP 8 mmol/L (5-15); CHLORIDE 96 mmol/L (98-107)
[2020-09-26 15:26] LABS: ALANINE AMINOTRANSFERASE 20 U/L (12-78); ALKALINE PHOSPHATASE 291 U/L (45-117); CALCIUM 8.6 mg/dL (8.5-10.1); CREATININE 1.06 mg/dL (0.55-1.02); TOTAL PROTEIN 6.6 g/dL (6.4-8.2)
--- NOTE | 2020-09-26 15:34 | NUR ---
PT CHART REVIEWED ANDPLACED FOR RECHECK.
[2020-09-26 15:45] VITALS: BP 113/66
--- NOTE | 2020-09-26 15:46 | NUR ---
PT RESTING ON GURNEY. NADN. AJ.
== END 2020-09-26 17:02 | disposition home or self-care (01) ==
LOC: ED 16:25
DX: K70.31 Alcoholic cirrhosis of liver with ascites (principal); E87.1 Hypo-osmolality and hyponatremia; L03.115 Cellulitis of right lower limb; L03.116 Cellulitis of left lower limb; D63.8 Anemia in other chronic diseases classified elsewhere; I10 Essential (primary) hypertension; E78.5 Hyperlipidemia, unspecified; Z88.0 Allergy status to penicillin; Z88.2 Allergy status to sulfonamides
CPT/HCPCS: 36415; 80053; 80320; 82140; 83690; 85025; 87040; 96361; 96365; 99284; J7030; G0480

== ENCOUNTER 2020-10-02 18:37 | Emergency (ER) | payer BC ==
[~2020-10-02] VITALS: Ht 165.1 cm; Wt 54.1 kg
[2020-10-02] MEDS ORDERED: LORazepam 2 MG/ML, 1ML ONE (18:50)
--- NOTE | 2020-10-02 18:56 | NUR ---
EMILIANO FROM HOME, PER EMS REPORT PT LIVES IN [place] ROOM, IT WAS REPORTED PT HAD BEEN YELLING AND SCREAMING FROM HER ROOM AND BANGING ON HER DOOR. PT NOTED TO BE ALTERED, AND UNCOOPERATIVE. FSBS 81. HX LIVER FAILURE.
[2020-10-02] MEDS ORDERED: LORazepam 2 MG/ML, 1ML IVPush ONE (19:00)
--- NOTE | 2020-10-02 19:04 | NUR ---
1900: First contact with pt, pt pulling at all cable and IV lines, pulling at gown, trying to get out of bed, altered but asking for oxy. POC: labs, ekgs, pcxr, straight cath, purwic continue to monitor. VSS. sinus tach on monitor no ectopy.
--- NOTE | 2020-10-02 19:11 | NUR ---
Lab here drawing blood, requested first set bc to be drawn now. PCXR done, EKG done.
[2020-10-02 19:26] LABS: BASOPHILS % (AUTO) 1 % (0-1); EOSINOPHILS % (AUTO) 0 % (1-7); LYMPHOCYTES % (AUTO) 18 % (22-44); MD NO; MEAN CORPUSCULAR HEMOGLOBIN 25.5 pg (27.0-34.8); MEAN CORPUSCULAR HGB CONC 32.5 g/dL (32.4-35.8); MEAN PLATELET VOLUME 6.7 fL (7.4-10.4); MONOCYTES % (AUTO) 8 % (2-9); NEUTROPHILS % (AUTO) 74 % (42-75); PLATELET COUNT 295 x10^3/uL (130-400); RED BLOOD COUNT 4.59 x10^6/uL (3.82-5.3); RED CELL DISTRIBUTION WIDTH 18.4 % (9.6-15.2)
--- NOTE | 2020-10-02 19:31 | NUR ---
STRAIGHT CATH WITHOUT DIFFICULTY, PT COOPERATIVE AND TOLERATED WELL.
[2020-10-02 19:35] LABS: ALANINE AMINOTRANSFERASE 21 U/L (12-78); ALBUMIN 3.2 g/dL (3.4-5.0); ANION GAP 10 mmol/L (5-15); CHLORIDE 101 mmol/L (98-107); CREATININE 0.99 mg/dL (0.55-1.02)
[2020-10-02 19:37] LABS: ALKALINE PHOSPHATASE 308 U/L (45-117); BILIRUBIN,TOTAL 1.5 mg/dL (0.2-1.0)
[2020-10-02 19:42] LABS: INTERNATIONAL NORMALIZED RATIO 1.14 (0.93-1.1); PROTHROMBIN TIME 12.2 Seconds (9.6-11.5)
--- NOTE | 2020-10-02 19:52 | NUR ---
REPORT GIVEN TO SEVEN MOSS.
--- NOTE | 2020-10-02 19:52 | NUR ---
Christian daley in [facility] - 10/02/20 at 2049 by [id number] REPORT GIVEN TO SEVEN FUNG
[2020-10-02 19:56] LABS: MICROSCOPIC INDICATED
--- NOTE | 2020-10-02 21:09 | NUR ---
patient resting in bed in NAD with eyes closed. call suarez in reach. safety maintained. will continue to monitor. supplemental 2L via NC left in place during rest for post-ativan admin.
--- NOTE | 2020-10-02 21:59 | NUR ---
patient continues to rest in bed in NAD with eyes closed. call suarez in reach. safety maintained. frequently monitored.
--- NOTE | 2020-10-02 22:25 | NUR ---
HOB elevated and patient responsive to this with movement and moaning but does not open eyes spontaneously. call suarez in reach. freq monitoring continues
--- NOTE | 2020-10-02 23:30 | NUR ---
call suarez in reach. safety maintained. resting on RA.
--- NOTE | 2020-10-03 00:30 | NUR ---
patient slightly drowsy but oriented x4 and agrees that she feels as though she is ready to go home now. patient cooperative and calm. i assisted her with getting dressed and patient did not give any effort to assist with this. this took me approx 30 minutes to assist patient to get out of gown, to get dressed, stand and into wheelchair. patient usually uses RW at home which we do not have available at this time in ER. steady gait while standing but repeats statement "i know you're in a hurry but i need you to be grateful for how far i've come". RN confused with this statement and patient states "i need to go slow and i dont need your help sitting up because i have chronic back pain so i cant move fast". patient moved extremely sluggish when requested by RN from lying to sitting at side of bed. patient eventually able to do so on own. patient conversing with RN the entirity of this process. patient asked to stand by this RN and patient states "yup, ill do it when i can. be grateful im doing this much". patient has multiple sores all over body and she states these are chronic and recurrent. patient disheveled and unkempt. hospital non-slip socks provided as patient was not sent with shoes. she requests [facility] be called. [employer] making this call. patient able to provide current address. she will need help into her home and patient states "[facility] is so great and they will help me into my house. they always do. they are awesome." patient refused to call son, brennan, for a ride home as she reports "my son doesnt know anything". discharge instructions reviewed with patient. acknowledges education. all personal belongings with patient on discharge, limited belongings sent with patient, she has drivers license , dc instructions, pants and shirt with her as this is all she was transferred with. waiting in lobby waiting for [employer]
[2020-10-03 00:39] VITALS: BP 136/85
== END 2020-10-03 00:43 | disposition home or self-care (01) ==
LOC: ED 19:12
DX: R41.82 Altered mental status, unspecified (principal); R00.0 Tachycardia, unspecified; I21.9 Acute myocardial infarction, unspecified; I10 Essential (primary) hypertension; E78.5 Hyperlipidemia, unspecified; F17.200 Nicotine dependence, unspecified, uncomplicated; Z90.49 Acquired absence of other specified parts of digestive tract
CPT/HCPCS: 71045; 80053; 81001; 82140; 82962; 85025; 85610; 85730; 93005; 96374; 99285; J2060

== ENCOUNTER 2020-10-11 13:32 | Outpatient (CLI) | payer BC ==
[2020-10-11] MEDS ORDERED: LIDOCAINE 1%, 10ML ONE (13:49)
== END 2020-10-11 23:59 | disposition home or self-care (01) ==
LOC: RAD 13:32
PROVIDERS: ATTEND Physician Assistant
DX: K70.31 Alcoholic cirrhosis of liver with ascites (principal); F17.200 Nicotine dependence, unspecified, uncomplicated; Z88.1 Allergy status to other antibiotic agents; Z88.2 Allergy status to sulfonamides; Z88.8 Allergy status to other drugs, medicaments and biological substances; Z79.891 Long term (current) use of opiate analgesic; Z79.899 Other long term (current) drug therapy
CPT/HCPCS: 49083; J3490

== ENCOUNTER 2020-10-18 15:00 | Outpatient (CLI) | payer BC ==
[~2020-10-18 15:00] MED LIST changes: +LIDOCAINE 1%, 10ML ONE
== END 2020-10-18 23:59 | disposition home or self-care (01) ==
LOC: RAD 15:00
PROVIDERS: ATTEND Physician Assistant
DX: K70.31 Alcoholic cirrhosis of liver with ascites (principal)
CPT/HCPCS: 49083; J3490

== ENCOUNTER 2020-10-22 11:01 | Outpatient (CLI) | payer BC ==
[~2020-10-22 11:01] MED LIST changes: -LIDOCAINE 1%, 10ML ONE
[2020-10-22] MEDS ORDERED: LIDOCAINE 1%, 10ML ONE (11:11)
[2020-10-22] MEDS ORDERED: ALBUMIN HUMAN 25%, 25GM/100ML ONE (11:55)
== END 2020-10-22 23:59 | disposition home or self-care (01) ==
LOC: RAD 11:01
PROVIDERS: ATTEND Physician Assistant
DX: K70.31 Alcoholic cirrhosis of liver with ascites (principal); Z90.49 Acquired absence of other specified parts of digestive tract; F17.210 Nicotine dependence, cigarettes, uncomplicated; Z88.1 Allergy status to other antibiotic agents; Z88.8 Allergy status to other drugs, medicaments and biological substances; Z88.2 Allergy status to sulfonamides; Z79.899 Other long term (current) drug therapy; Z72.89 Other problems related to lifestyle; Z98.890 Other specified postprocedural states
CPT/HCPCS: 49083; J3490; P9047

== ENCOUNTER 2020-10-25 12:48 | Emergency (ER) | payer BC ==
[~2020-10-25] VITALS: Ht 162.6 cm; Wt 58.7 kg
--- NOTE | 2020-10-25 13:37 | NUR ---
PT TO ROOM 18 W/ C/O ABD DISTENDED. P STATES SHE HAS HX ETOH ABUSE AND IS HERE FOR PARACENTESIS. DENIES ANY OTHER COMPLAINTS. PT RESTING ON GURNEY. NADN. MONITORS APPLIED. VSS.
[2020-10-25 14:24] VITALS: BP 136/95
--- NOTE | 2020-10-25 14:24 | NUR ---
BREAK RN: PT ON CELL PHONE IN ROOM. VS STABLE. NO ACUTE DISTRESS NOTED. CALL LIGHT IN PLACE. WILL CONTINUE TO MONITOR.
--- NOTE | 2020-10-25 15:04 | NUR ---
PT TAKEN TO IR IN STABLE CONDITION.
--- NOTE | 2020-10-25 15:22 | NUR ---
BREAK RN: IR CALLED. PT IS NOT IN IR. PT IS NOT IN THE ROOM. DR ESCOBEDO AWARE.
== END 2020-10-25 15:27 | disposition left against medical advice (07) ==
LOC: ED 13:38
DX: K70.31 Alcoholic cirrhosis of liver with ascites (principal); I10 Essential (primary) hypertension; E78.5 Hyperlipidemia, unspecified; F17.200 Nicotine dependence, unspecified, uncomplicated
CPT/HCPCS: 99281

== ENCOUNTER → 2020-10-28 | Outpatient (CLI) | payer BC, MEDICAID | END | disposition home or self-care (01) | LOC: RAD 10:49 | PROVIDERS: ATTEND Physician Assistant | DX: R18.8 Other ascites (principal); K74.60 Unspecified cirrhosis of liver; Z88.1 Allergy status to other antibiotic agents; Z88.2 Allergy status to sulfonamides; Z88.8 Allergy status to other drugs, medicaments and biological substances | CPT/HCPCS: 49083 ==

== ENCOUNTER 2020-10-31 09:55 | Outpatient (CLI) | payer BC ==
[~2020-10-31 09:55] MED LIST changes: +LIDOCAINE 1%, 10ML ONE
[2020-10-31] MEDS ORDERED: LIDOCAINE 1%, 10ML ONE (10:18)
== END 2020-10-31 23:59 | disposition home or self-care (01) ==
LOC: RAD 09:55
PROVIDERS: ATTEND Physician Assistant
DX: K70.31 Alcoholic cirrhosis of liver with ascites (principal); Z79.899 Other long term (current) drug therapy; Z88.2 Allergy status to sulfonamides; Z88.8 Allergy status to other drugs, medicaments and biological substances
CPT/HCPCS: 49083; J3490

== ENCOUNTER 2020-11-12 12:37 | Outpatient (CLI) | payer BC ==
[~2020-11-12 12:37] MED LIST changes: -LIDOCAINE 1%, 10ML ONE
[2020-11-12] MEDS ORDERED: LIDOCAINE 1%, 10ML ONE (12:46)
== END 2020-11-12 23:59 | disposition home or self-care (01) ==
LOC: RAD 12:37
PROVIDERS: ATTEND Physician Assistant
DX: K70.31 Alcoholic cirrhosis of liver with ascites (principal); F17.210 Nicotine dependence, cigarettes, uncomplicated; Z79.899 Other long term (current) drug therapy; Z88.1 Allergy status to other antibiotic agents; Z88.2 Allergy status to sulfonamides; Z88.8 Allergy status to other drugs, medicaments and biological substances; Z90.49 Acquired absence of other specified parts of digestive tract; Z98.890 Other specified postprocedural states; Z72.89 Other problems related to lifestyle
CPT/HCPCS: 49083; J3490

== ENCOUNTER 2021-02-06 12:25 | Emergency (ER) | payer BC ==
[~2021-02-06] VITALS: Ht 157.5 cm; Wt 65.5 kg
[2021-02-06 12:33] VITALS: BP 169/88
--- NOTE | 2021-02-06 13:47 | NUR ---
ED MEDIC IN TO START IV/DRAW LABS.
--- NOTE | 2021-02-06 13:49 | NUR ---
MRI CALLED, STATES 35-40 MINUTES FOR MRI.
[2021-02-06] MEDS ORDERED: SODIUM CHLORIDE FLUSH 10ML SYR IVF ONE (14:00)
[2021-02-06 14:14] LABS: BASOPHILS % (AUTO) 1 % (0-1); EOSINOPHILS % (AUTO) 1 % (1-7); LYMPHOCYTES % (AUTO) 9 % (22-44); MEAN CORPUSCULAR HEMOGLOBIN 24.8 pg (27.0-34.8); MEAN CORPUSCULAR HGB CONC 32.9 g/dL (32.4-35.8); MEAN PLATELET VOLUME 7.4 fL (7.4-10.4); MONOCYTES % (AUTO) 7 % (2-9); NEUTROPHILS % (AUTO) 82 % (42-75); PLATELET COUNT 162 x10^3/uL (130-400); RED BLOOD COUNT 4.73 x10^6/uL (3.82-5.3); RED CELL DISTRIBUTION WIDTH 20.5 % (9.6-15.2)
[2021-02-06 14:18] LABS: ALANINE AMINOTRANSFERASE 32 U/L (12-78); ALBUMIN 3.2 g/dL (3.4-5.0); ANION GAP 6 mmol/L (5-15); CALCIUM 8.7 mg/dL (8.5-10.1); CHLORIDE 104 mmol/L (98-107); CREATININE 0.85 mg/dL (0.55-1.02)
[2021-02-06 14:20] LABS: ALKALINE PHOSPHATASE 90 U/L (45-117); BILIRUBIN,TOTAL 0.6 mg/dL (0.2-1.0); TOTAL PROTEIN 6.7 g/dL (6.4-8.2)
--- NOTE | 2021-02-06 14:25 | NUR ---
AC/DC REWINDER IN TO TAKE PT. PT REFUSING TO GO TO MRI UNTIL SHE GETS PAIN MEDICATION. PT STATES SHE HASN'T TAKEN HER HOME OXYCONTIN SINCE 399. ERP NOTIFIED. PT OFFERED TORADOL PER ERP ORDER, PT REFUSING, STATING "I WILL GO TO MRI BUT THEN I WANT TO GO HOME AND YOU CAN SEND REPORT TO MY DR". MRI CALLED AND INFORMED. PER MRI, PT WILL BE TAKEN NEXT AVAILABLE. PT TOLD TO GET UNDRESSED AND INTO GOWN TO PREPARE FOR MRI. CALL LIGHT WITHIN REACH.
[2021-02-06 14:35] LABS: ANISOCYTOSIS 1+; MICROCYTOSIS 1+; OVALOCYTES 1+
[2021-02-06 14:36] LABS: <PLATELET ESTIMATE> ADEQUATE; <PLT MORPHOLOGY> NORMAL PLT MORPH
--- NOTE | 2021-02-06 15:56 | NUR ---
PT AMBULATORY TO [facility] PHONE TO CALL HER PRIMARY . PT AMBULATORY WITH STEADY GAIT, NAD. PT NOT IN GOWN, TOLD AGAIN TO PUT ON HOSPITAL GOWN. PT TO MRI. Addendum: 02/06/21 at 1607 by ANGEL PT DID NOT GO TO MRI. HAND TURNER STATES PT SAYS SHE DOESN'T HAVE IV. THIS RN INTO ROOM, AND PT'S IV GONE-CATHETER, DSG, AND TUBING SEEN IN TRASH. PT STATES "SOMEBODY CAME IN AND TOOK IT OUT". REASON FOR IV, FOR MRI, EXPLAINED TO PT AND THAT STAFF WOULD NOT REMOVE IV BEFORE PT DISCHARGED. PT DID NOT ANSWER OR RESPOND AND STARTED GETTING DRESSED. ERP AND PARCEL POST CLERK RN NOTIFIED. STAFF OBSERVED PT DRESSED AND LEAVING ED.
== END 2021-02-06 16:28 | disposition left against medical advice (07) ==
LOC: ED 16:00
DX: M51.16 Intervertebral disc disorders with radiculopathy, lumbar region (principal); E78.5 Hyperlipidemia, unspecified; I10 Essential (primary) hypertension
CPT/HCPCS: 36415; 80053; 85025; 99283